=== PATIENT | male | born 1975 | race Caucasian/White ===

== ENCOUNTER 2017-11-08 15:18 | Emergency (ER) | payer MEDICAID, SELFPAY ==
[2017-11-08] VITALS (7 sets, daily range): BP systolic 101–153; BP diastolic 63–90; PULSE 75–106; RESP 11–20; TEMP 36.4; O2SAT 93–98; BMI 36.8
--- NOTE | 2017-11-08 15:28 | EKG12_ITS ---
Test Reason : CP Blood Pressure : / mmHG Vent. Rate : 096 BPM Atrial Rate : 096 BPM P-R Int : 128 ms QRS Dur : 092 ms QT Int : 328 ms P-R-T Axes : 024 -05 016 degrees QTc Int : 414 ms Normal sinus rhythm Normal ECG Confirmed by KYA HILL MD ([id number]), film editor supervisor ZULMA BIRMINGHAM ([id number]) on 11/11/2017 8:42:59 AM Referred By: Confirmed By:KYA HILL MD
[2017-11-08] MEDS: Aspirin 81 MG TAB.CHEW 324 MG PO (15:46)
[2017-11-08 15:58] LABS: Absolute Lymphocyte Count 2.86 X10^3/ul (0.83-4.51); Absolute Neutrophil Count 7.1 X10^3/uL (2.0-7.7); Basophil# 0.06 X10^3/uL; Basophil% 0.5 % (0-1); Eosinophil# 0.21 X10^3/uL; Eosinophils% 1.9 % (0-5); Hematocrit 48.5 % (40-54); Hemoglobin 16.9 g/dl (13.0-16.5); Lymphocyte # 2.86 X10^3/ul (4.0); Lymphocyte % 25.6 % (19-41); Mean Corp Hgb Conc 34.8 g/gl (32-36); Mean Corpuscular Hgb 31.7 pg (27.0-32.0); Mean Platelet Vol. 10.3 fl (6.2-12.0); Monocyte# 0.87 X10^3/uL; Monocyte% 7.8 % (0-10); Neutrophil # 7.13 X10^3/uL (2.7-7.7); Neutrophil % 63.9 % (47-70); POSITIVE COUNT NO; POSITIVE DIFFERENTIAL NO; POSITIVE MORPHOLOGY NO; Platelet Count 198 K/mm3 (150-450); RBC Distribution Width CV 12.8 % (11.6-14.6); RBC Distribution Width SD 42.7 fl (35.1-43.9); Red Blood Count 5.33 M/mm3 (4.6-6.2); White Blood Count 11.2 K/mm3 (4.4-11.0)
--- NOTE | 2017-11-08 16:08 | RAD_ITS ---
STUDY: X-RAY CHEST REASON FOR EXAM: Male, 42 years old. Chest pain. TECHNIQUE: PA and lateral views of the chest. COMPARISON: 11/30/2013 FINDINGS: The lungs are clear and expanded. There is no demonstrated pleural abnormality. Normal size heart. Normal mediastinum and rick. Normal visualized pulmonary arteries. Normal visualized aortic arch and descending thoracic aorta. Normal visualized thoracic spine. Normal visualized ribs, clavicles, and shoulders. There is no demonstrated abnormality of the visualized soft tissue structures of the upper abdomen. RAD/Chest PA and Lateral IMPRESSION: Normal x-ray examination of the chest. Electronically Signed: David Escalante DO at 16:30 EST Tel , Service support ,
[2017-11-08 16:18] LABS: Anion Gap 8 (5-15); BUN 9 mg/dL (7-18); BUN/Creat Ratio 7.8 RATIO (10-20); Calcium,Total 8.5 mg/dL (8.5-10.1); Chloride 106 mmol/L (98-107); Creatinine, Serum 1.15 mg/dL (0.70-1.30); EST Glomerular Filtration Rate 74 mL/min (>60); Est Glom Filt Rate - Afr Amer 89 mL/min (>60); Estimated Creatinine Clearance 88.21 ml/min; Glucose 135 mg/dL (74-106); Potassium 3.8 mmol/L (3.5-5.1); Sodium Level 140 mmol/L (136-145)
--- NOTE | 2017-11-08 17:13 | EKG12_ITS ---
Test Reason : REPEAT Blood Pressure : / mmHG Vent. Rate : 082 BPM Atrial Rate : 082 BPM P-R Int : 124 ms QRS Dur : 086 ms QT Int : 358 ms P-R-T Axes : 018 004 027 degrees QTc Int : 418 ms Normal sinus rhythm Normal ECG Confirmed by KYA HILL MD ([id number]), offline editor ZULMA BIRMINGHAM ([id number]) on 11/11/2017 8:43:18 AM Referred By: LUIGI Confirmed By:KYA HILL MD
--- NOTE | 2017-11-08 19:30 | ED.DCSUM_ITS ---
- ER Visit Summary Date of Service: 11/08/17 Chief Complaint: [] Chest pain History of Present Illness: The patient is a 42 M []c/o midsternal CP one hour after arrival. Reports onset of symptoms while feeding his horses. Denies shortness of breath. Does report slight radiation to the upper part of the chest. Denies any previous cardiac history or previous stress test. Does report he is a smoker. He reports no past medical history. His report previous surgical history of tonsils and adenoids, wrist repair, hernia repair, knee repair. Reports the chest pain is a 3 out of 10 upon arrival. He reports it was as high as a 5 out of 10 prior to arrival. Physical Examination: [] Afebrile, vital signs stable. Middle-age male no acute distress. Cardiovascular exam is regular rate and rhythm. Lungs are clear to auscultation. Abdomen is soft and nontender. There is no lower extremity edema. Test Results: [] Chest x-ray 2 views negative. Initial EKG shows normal sinus rhythm rate of 96 with no ectopy or ischemic changes. Repeat EKG shows normal sinus rhythm rate of 82 with no ischemic changes. This was obtained 2 hours after initial EKG. CBC, BMP were within normal limits. First troponin was less than 0.02. Second troponin was 0.04. Emergency Department Course and Treatment: [] Patient was given aspirin and nitroglycerin upon arrival. Patient received all 3 nitroglycerin tablets and reports significant improvement of symptoms. His SAMREEN risk score is 0 out of 7. His repeat EKG and troponin on the delta evaluation were negative. At this time I feel the patient is a low risk candidate and can safely be discharged home with close follow-up with his PCP for an outpatient stress test. Patient was amenable to plan. He was counseled regarding his diagnostic and laboratory testing. All questions answered in layman's terms. Treatment Plan: [] Follow-up with PCP for outpatient stress testing. Return immediately to the emergency department should symptoms recur. Disposition: [] Discharge, stable. Impression: [] Chest pain, unknown etiology This note was generated with [employer] software. It may contain incorrect words, spelling, and punctuation that were not noted in review of the chart prior to signing ED Disposition - Plan for ED Patient: Chief Complaint: Chest Pain Referrals: Milana Adame [Primary Care Provider] -
--- NOTE | 2017-11-08 19:30 | ED.DEP ---
ED Disposition - Plan for ED Patient: Disposition: Home or Assisted Living Chief Complaint: Chest Pain Instructions: ED Chest Pain [facility] Referrals: Milana Adame [Primary Care Provider] - Additional Instructions: Follow up with your primary care physician as soon as possible. Discuss the arrangement of an outpatient stress test.
== END 2017-11-08 19:55 | disposition home or self-care (01) ==
PROVIDERS: Emergency Provider Emergency Medicine; Family Provider Family Medicine; PCP Family Medicine
DX: R07.89 Other chest pain (principal); R61 Generalized hyperhidrosis; E66.9 Obesity, unspecified; Z72.0 Tobacco use
CPT/HCPCS: 71046; 80048; 84484; 85025; 93005; 99284; A4216

== ENCOUNTER → 2017-12-16 15:11 | Outpatient (CLI) | payer MEDICAID, SELFPAY ==
[2017-12-16 16:34] LABS: Anion Gap 7 (5-15); BUN 11 mg/dL (7-18); BUN/Creat Ratio 11.6 RATIO (10-20); Calcium,Total 8.6 mg/dL (8.5-10.1); Chloride 104 mmol/L (98-107); Creatinine, Serum 0.94 mg/dL (0.70-1.30); EST Glomerular Filtration Rate 93 mL/min (>60); Est Glom Filt Rate - Afr Amer 112 mL/min (>60); Glucose 95 mg/dL (74-106); Sodium Level 138 mmol/L (136-145)
[2017-12-16 16:35] LABS: Absolute Neutrophil Count 6.4 X10^3/uL (2.0-7.7); Basophil# 0.05 X10^3/uL; Basophil% 0.5 % (0-1); Eosinophil# 0.23 X10^3/uL; Eosinophils% 2.1 % (0-5); Hematocrit 50.8 % (40-54); Hemoglobin 17.4 g/dl (13.0-16.5); Lymphocyte % 30.7 % (19-41); Mean Corp Hgb Conc 34.3 g/gl (32-36); Mean Corpuscular Hgb 31.4 pg (27.0-32.0); Mean Corpuscular Volume 91.7 fL (80-94); Mean Platelet Vol. 11.2 fl (6.2-12.0); Monocyte# 1.01 X10^3/uL; Monocyte% 9.1 % (0-10); Neutrophil # 6.36 X10^3/uL (2.7-7.7); Neutrophil % 57.2 % (47-70); Platelet Count 212 K/mm3 (150-450); RBC Distribution Width CV 13.2 % (11.6-14.6); RBC Distribution Width SD 43.9 fl (35.1-43.9); Red Blood Count 5.54 M/mm3 (4.6-6.2); White Blood Count 11.1 K/mm3 (4.4-11.0)
[2017-12-16 16:42] LABS: POSITIVE COUNT NO; POSITIVE DIFFERENTIAL NO; POSITIVE MORPHOLOGY NO
[2017-12-16 17:09] LABS: International Normalized Ratio 0.9; Prothrombin Time (Protime)PT. 11.6 SECONDS (11.7-14.9)
[2017-12-16 17:10] LABS: Partial Thromboplast Time 39.4 Seconds (24.1-36.2)
== END ==
PROVIDERS: Family Provider Internal Medicine; PCP Internal Medicine; Visit Provider Internal Medicine Cardiovascular Disease
DX: E78.2 Mixed hyperlipidemia (principal); R07.9 Chest pain, unspecified; Z72.0 Tobacco use; E66.9 Obesity, unspecified; R94.39 Abnormal result of other cardiovascular function study
CPT/HCPCS: 36415; 80048; 85025; 85610; 85730

== ENCOUNTER → 2017-12-17 13:39 | Outpatient (CLI) | payer MEDICAID, SELFPAY ==
--- NOTE | 2017-12-17 13:39 | ECHOD_ITS ---
Reason For Study: CHEST PAIN Procedure This was a 2D Doppler, Color Flow transthoracic echocardiogram. Contrast injection was performed. Exam performed in department. Left Ventricle Normal size and thickness. The estimated ejection fraction is 65 %. No regional wall motion abnormalities noted. Right Ventricle Normal size and thickness. Normal systolic function. Atria Normal left atrium. Normal right atrium. Normal atrial septum. Mitral Valve The mitral valve is structurally normal. No prolapse or stenosis seen. Tricuspid Valve Normal tricuspid valve. Trivial tricuspid valve insufficiency. Right ventricular systolic pressure estimated to be 23 mmHg. Aortic Valve Trisinus/trileaflet aortic valve. Normal aortic valve. Pulmonic Valve Normal pulmonic valve. Great Vessels Normal aortic root. Normal arch. Normal inferior vena cava. Inferior vena cava collapse with sniff. Pericardium/Pleural No pericardial effusion. Medication 22 gauge I.V. with prn adaptor inserted into right arm. Diluted definity 4ml given slow IV push to enhance endocardial definition. MMode/2D Measurements & Calculations LVIDd: 5.1 cm IVSd: 1.0 cm Ao root diam: 3.8 cm LVIDs: 3.6 cm LVPWd: 1.2 cm LA dimension: 3.9 cm RVDd: 3.4 cm FS: 29.1 % LAV(MOD-bp): 38.1 ml EDV(MOD-sp4): 101.1 ml EDV(MOD-sp2): 73.6 ml LAV(MOD-bp) Indexed: 15.9 ml/m2 ESV(MOD-sp4): 34.5 ml EF(MOD-sp2): 62.8 % LAV(MOD-sp2): 40.6 ml EF(MOD-sp4): 65.8 % LAV(MOD-sp4): 36.2 ml SV(MOD-sp4): 66.5 ml SV(MOD-sp2): 46.2 ml LA A4 area: 15.0 cm2 RA A4 area: 14.1 cm2 Doppler Measurements & Calculations MV E max mirna: 51.0 cm/sec Ao V2 max: 144.6 cm/sec LV V1 max: 101.6 cm/sec MV A max mirna: 64.8 cm/sec Ao max P.4 mmHg LV V1 max P.1 mmHg MV E/A: 0.79 PA V2 max: 118.3 cm/sec TR max mirna: 209.8 cm/sec TR max P.6 mmHg Interpretation Summary The estimated ejection fraction is 65 %. Right ventricular systolic pressure estimated to be 23 mmHg. There is no comparison study available. Ordering Physician: Tyler Hall Referring Physician: GUDELIA SCHMIDT MD Performed By: Cathy Sr, VANCE, RVT
== END ==
PROVIDERS: Family Provider Internal Medicine; PCP Internal Medicine; Visit Provider Internal Medicine Cardiovascular Disease
DX: E78.2 Mixed hyperlipidemia (principal); R07.9 Chest pain, unspecified; E66.9 Obesity, unspecified; Z72.0 Tobacco use; R94.39 Abnormal result of other cardiovascular function study; R06.09 Other forms of dyspnea
CPT/HCPCS: 93306; Q9957; A4216; C8929

== ENCOUNTER → 2017-12-18 06:57 | Day surgery (SDC) | payer MEDICAID, SELFPAY ==
[2017-12-17 15:31] VITALS: BMI 37.9
[2017-12-18 07:45] LABS: AST(SGOT) 26 U/L (15-37); Alanine Aminotransfer ALT/SGPT 53 U/L (16-61); Albumin, Serum 3.7 g/dL (3.2-5.0); Alkaline Phosphatase 85 U/L (45-117); Bilirubin, Direct 0.08 mg/dL (0.00-0.30); Cholesterol 223 mg/dL (200); Globulin 3.3 g/dL (2.2-4.2); High Density Lipoprotein 23 mg/dL; Triglycerides 438 mg/dL
--- NOTE | 2017-12-18 10:33 | CL.D_ITS ---
Patient Name: PAT VU Study Date: 12/18/2017 Performing: Tyler Hall MD Ht: 70.86 inches 180 cm : 1975 Wt: 271.17 lbs 123 kg Age: 42 Gender: male BSA: 2.4 PROCEDURE(S) PERFORMED [id number]-[id number]/COR/LV CLINICAL PROFILE AND INDICATIONS INDICATIONS: Unstable Angina Stress/Imaging Stress Test w/SPECT MPI: Yes Result: Positive High RiskStress Test with SPECT MPI: Positive High Risk Angina Classification Anginal Classification w/in 2 Weeks: CCS IV CAD Presentations: Unstable angina. Comorbidities/Risk Factors: Current/Recent Smoker (< 1year) Hypertension Dyslipidemia Family History of Premature CAD CONCLUSIONS RECOMMENDATIONS Surgery consult for coronary revascularization Risk factor modification DESCRIPTION OF PROCEDURE The patient arrived to the procedure lab. The risks and benefits of the procedure as well as a full d escription of our services here and current unavailability of surgical backup were fully explained to the patient and/or their significant other prior to the catheterization. The Timeout was completed, verifying the correct patient and procedure. The patient's procedural site was prepped and draped in the usual fashion. Local anesthetic was given subcutaneously to right groin region with Lidocaine 2%. Using a modified Seldinger technique, arterial access was obtained via the right femoral artery, a 4 Fr sheath was inserted Left Coronary Artery selective angiography was performed in multiple views us ing a 4 Fr. JL5 catheter. Right Coronary Artery selective angiography was then performed in multiple views using a 4 Fr. 3DRC catheter. Left Ventriculography was performed in LORA projection using a 4 Fr . Pigtail catheter. LV to AO pullback pressures were then recorded.The arterial sheath was pulled and manual compression applied until hemostasis is achieved. CORONARY ANGIOGRAPHY DOMINANCE: Right Dominant LEFT HEART ASSESSMENT Left Ventricular Ejection Fraction: by LV Gram 65 % Normal LV wall motion Normal Left Ventricular systolic function Normal Left Ventricular End Diastolic Pressure LEFT MAIN: Non-obstructive LEFT ANTERIOR DECENDING ARTERY: PROX LAD: 85 % Stenosis CIRCUMFLEX ARTERY: Mild luminal irregularities less than 30% RIGHT CORONARY ARTERY: is occluded COLLATERAL FLOW: Collateral flow from Left to Right Collateral flow from Right to Right COMPLICATIONS No Complications PROCEDURE MEDICATIONS Oxygen: 2 L/min via nasal cannula SUMMARY OF HEMODYNAMIC DATA Time AIR REST ECG 07:45:47 ECG 07:45:54 AO 127/79 (95) SA 10:09:33 LV 138/-16, 13 10:15:25 LV 136/-13, 15 10:15:32 LVp 146/-17, 9 10:18:27 AOp 125/68 (91) 10:18:32 Signed By Tyler Hall MD On 12/18/2017 10:32:59 Tylre Hall MD
--- NOTE | 2017-12-18 10:47 | CASEMGMT ---
Per Dr. Hall, pt is outpt cath and needs transferred at this time. According to [place] [employer] website, the following are in-network tertiary facilities: [facility], [facility], [place], [facility], [facility], [facility], and . Dr. Hall aware at this time, voices understanding. Christoph MIRELSE CM
== END ==
PROVIDERS: Family Provider Internal Medicine; PCP Internal Medicine; Visit Provider Internal Medicine Cardiovascular Disease
DX: I25.110 Atherosclerotic heart disease of native coronary artery with unstable angina pectoris (principal); R94.39 Abnormal result of other cardiovascular function study; E66.01 Morbid (severe) obesity due to excess calories; Z68.37 Body mass index [BMI] 37.0-37.9, adult; I10 Essential (primary) hypertension; E78.2 Mixed hyperlipidemia; F17.200 Nicotine dependence, unspecified, uncomplicated; Z87.2 Personal history of diseases of the skin and subcutaneous tissue; Z79.82 Long term (current) use of aspirin; Z79.899 Other long term (current) drug therapy
CPT/HCPCS: 36415; 80061; 80076; 93458; J7040; C1769; C1894; Q9967

== ENCOUNTER → 2018-01-30 12:51 | Outpatient (CLI) | payer MEDICAID, SELFPAY ==
--- NOTE | 2018-01-30 12:57 | PCM.CR.ITP ---
General Information - General Information Admitting Diagnosis: Z95.1 CABG - Education/Goals Barriers to Learning: None Individual Counseling: Initial Assessment: Abnormal Cholesterol Levels, High Blood Pressure, Overweight/Obesity Cardiac Rehabilitation Goals: 1. Maintain the individual as the primary focus of care. 2. To improve the patient's quality of life. 3. Identification of cardiac risk factors and provide cardiac risk factor management. 4. Enhance the psychosocial status of the patient. 5. Reconditioning enough to allow the patient to resume customary activities. 6. Control symptoms of cardiac disease Scale for measuring improvement of personal goals: Enter appropriate number in Comments. 2 = Unchanged. 3 = Slightly Better. 4 = Moderate Improvement. 5 = Met my Goal Personal Goals: Initial Assessment: Improve energy level, Get back to work, or to resume activities faster, Improve knowledge of cardiac disease, Improve muscle strength and endurance, Improve diet and eating habits (eat healthier), Control risk factors (learn risk factor modification) Exercise - Initial Assessment - Visit Date of Eval: 01/30/18 - initial eval - Stages of Change Stages of Change:: Contemplate - Exercise Prescription Mode:: Treadmill, Biodyne, Airdyne, NuStep Angina with exercise?: No Target Heart Rate:: 123-132 - Hypertension Do any of the following apply?: Yes Resting Blood Pressure:: 120/70 - Intervention Home Exercise/Activity Goal:: Sitting Time <3 hrs/day - Education Goals:: Warm-up, RPE JULIANNE Scale, S/S, Safe Exercise, Self-Monitoring - Exercise Program Goals Exercise Program Goals: Aerobic Activity >30 min Nutrition - Initial Assessment - Program Goals Nutrition Program Goals: LDL <70. Total Cholesterol <200. HDL >45. Triglycerides <150. HgbA1C <7%. BMI <25 - Visit Date of Assessment:: 01/30/18 - Stages of Change Stages of Change:: Contemplate - Diabetes Diabetes:: No - Weight Management Height: 1.8 m Weight:: 123.377 kg Total Score:: 6 Tobacco - Initial Assessment - Program Goals Tobacco Program Goals: Complete smoking cessation. Attend education classes. Improve Knowledge Test score - Stage of Change Stages of Change:: Contemplate - Learning Barriers Total Score:: 17 - Family Support Do you have family support?: Yes - Tobacco Use Tobacco Use: Non-smoker Years Smokin - reformed 11/06/17 Do you use smokeless tobacco?: No - Intervention Smoking Cessation Referral:: No Individual Education/Counseling:: No Education Schedule Given:: Yes - Education Gave educational material for:: Tobacco triggers, Coronary artery disease, Risk factors, Sexuality, Medical compliance, Cardiac A&P, Angina signs & symptoms Psychosocial - Initial Assess - Target Goals Target Goals: Assess presence or absence of depression. Using a valid screening tool, maximizes coping skills. Positive support system - Stages of Change Stages of Change:: Contemplate - Psychosocial Test Tool Used:: HANDS Depression Questionnaire Total Mood Screening Score:: 9 Self-Efficacy Score:: 6 - Intervention PS - Interventions: Yes Attend Stress Management Classes, Yes Uses Stress Management Skills, No Referral to Mental Health, No Referral to [facility] Case Management, No Referral to Physician - Education Gave educational materials for:: Coping techniques, Signs & symptoms of depression, Stress management, Relaxation techniques - Assistive Devices Assistive Devices:: None Fall Risk Assessed:: Yes Patient Health Questionnaire Initial Assessment 1. Little interest or pleasure in doing things: More than half the days 2. Feeling down, depressed, or hopeless: Not at all 3. Trouble falling or staying asleep, or sleeping too much: Several days 4. Feeling tired or having little energy: More than half the days 5. Poor appetite or overeating: More than half the days 6. Feeling bad about yourself -- or that you are a failure or have let yourself or your family down: Not at all 7. Trouble concentrating on things, such as reading the newspaper or watching television: More than half the days 8. Moving or speaking so slowly that other people could have noticed. Or the opposite - being so fidgety or restless that you have been moving around a lot more than usual: Not at all 9. Thoughts that you would be better off , or of hurting yourself in some way: Not at all How difficult have these problems made it for you to do your work, take care of things at home, or get along with other people?: Not difficult at all Total Score: 9 NATE-Q SV Test - Statements CAD is a disease of the arteries in the heart: False Examples of risk factors for heart disease: True Angina is chest pain or discomfort: False The benefits of resistance training include: True Eating more meat and dairy products: False Anti-platelet medications such as aspirin are important: False The only effective way to manage stress: False An exercise warm-up slowly increases heart rate: True Prepared, processed foods usually have high sodium: True Depression is common after a heart attack: True The statin medications lower cholesterol: True To control blood pressure, lower the amount of sodium: True If someone gets chest discomfort during walking: True Transfats are partially hydrogenated vegetable oils: True Sleep apnea that is not treated increases the risk: False To control cholesterol, one should become a vegetarian: False Someone knows if he/she is exercising at the right level: True Diabetes cannot be prevented with exercise & health eating: False Stress is a large risk for heart attack: True A diet that can help lower blood pressure is rich in: True - Total Score Total Correct Responses: 17 Self-Efficacy Initial Assessment We would like to know how confident you are in doing certain activities. Please select your confidence level for:: Select your confidence level for the following using the scale 1-10 where 1 is not at all confident and 10 is totally confident. Your score is the average of all 6 responses. Fatigue: How confident are you that you can keep the fatigue caused by your disease from interfering with the things you want to do? Select Number: 7 Physical Discomfort or Pain: How confident are you that you can keep the physical discomfort or pain of your disease from interfering with the things you want to do? Select Number: 6 Emotional Distress: How confident are you that you can keep the emotional distress caused by your disease from interfering with the things you want to do? Select Number: 5 Other Symptoms or Health Problems: How confident are you that you can keep other symptoms or health problems from interfering with the things you want to do? Select Number: 5 Different Tasks and Activities: How confident are you that you can do the different tasks and activities needed to manage your health condition so as to reduce your need to see a doctor? Select Number: 5 Medication: How confident are you that you can do things other than just taking medication to reduce how much your illness affects your everyday life? Select Number: 9 Total Score:: 6 Nutrition Survey - Nutrition Survey Instructions Scoring Instructions: Scoring is as follows: Yes = 1 points. No = 0 point. Patient score that is >/=12 is considered to be at potential nutritional risk and could benefit from a referral to a registered dietitian. - Nutrition Survey Initial Have you lost >10 lbs over the past 2 months without trying?: Yes Are you following a special diet at home for diabetes, low fat, or low salt?: No Are you interested in meeting with a dietitian for help understanding your diet?: Yes Do you eat less than 3 meals a day?: Yes Do you eat fatty meats (nino, sausage, ribs, etc), fried foods, desserts, large amounts of salad dressings, margarine, butter, or cheese most days?: Yes Do you have food allergies? [Enter types in comment field]: No Do you eat in restaurants more than 3 times a week?: No Do you season food with salt, seasoning salt, or garlic salt?: Yes Do you used canned, boxed, frozen meals, or soups, seasoning packets?: Yes Total Score:: 6
--- NOTE | 2018-01-30 12:58 | PCM.CR.HP2 ---
CR - History & Physical - General Arrival date:: 01/30/18 Arrival time:: 12:58 Date of Referral:: 01/13/18 Date of CR Evaluation:: 01/30/18 Referring Physician: Dr. Tyler Hall and Dr. Pancho Temple Primary Diagnosis: Z95.1 CABG - History of Present Cardiac Event Onset Date: Enter Onset Date of cardiac illnesses in Comment field below Current stable Angina Pectoris:: Yes Coronary Artery Bypass Graft:: Yes - Medications Home Medications: Ambulatory Orders Medication Instructions Recorded aspirin 81 mg tablet,delayed 81 mg PO QDAY tab 12/16/17 release acetaminophen 325 mg tablet See Label Instructions PO Q6H PRN 01/22/18 metoprolol tartrate 50 mg tablet 50 mg PO TID tab 01/22/18 atorvastatin 80 mg tablet 80 mg PO QDAY #90 tab 01/23/18 gabapentin 100 mg capsule 100 mg PO TID cap 01/23/18 - Allergies Allergies/Adverse Reactions: Allergies Penicillins Allergy (Verified 01/23/18 11:25) Anaphylaxis - Sleep Disorder Evaluation Hx of Sleep Apnea: No Do you snore loudly (louder than talking or can be heard through closed doors)?: Yes Do you often feel tired/ fatigued/ sleepy during daytime?: No Has anyone observed you stop breathing during sleep?: Yes History of Hypertension (for STOP score): Yes STOP Results: Positive Advanced Directives - Advanced Directives Power of Sports Bookmaker: No Living Will: No Advance Directives Information Provided: No Advance Directives on File: No DNR Order?:: No - MOLST See MOLST form: No Past Medical History - Past Medical Illness Medical History: Past Medical History (Last Reviewed 01/23/18 @ 11:22 by Lakeisha Arzola) Atherosclerotic heart disease of [place] coronary artery without angina pectoris (Chronic) I25.10 BRAGA to LAD, SVG to PDA of RCA Per Dr. Pancho Temple [facility] 12/24/2017 Mixed hyperlipidemia (Chronic) E78.2 Obesity (BMI 30-39.9) (Chronic) E66.9 Nicotine abuse (Chronic) Z72.0 Cutaneous abscess of chest wall L02.213 - Past Surgical History Surgical History: Past Surgical History (Last Reviewed 01/23/18 @ 11:23 by Lakeisha Arzola) S/P CABG x 2 (Chronic) Z95.1 BRAGA to LAD, SVG to PDA of RCA Per Dr. Pancho Temple [facility] 12/24/2017 - Family History Summary Family History: Family History (Last Reviewed 01/23/18 @ 11:23 by Lakeisha Arzola) Grandfather CAD (coronary artery disease) Grandmother CAD (coronary artery disease) Aunt CAD (coronary artery disease) Other CVA (cerebral vascular accident) Social History - Smoking History Smoking Status: Former smoker Years Smokin Packs Smoked per Day: 1.5 Hx Smoking Cessation Date: 11/06/2017 Hx Tobacco Use: Yes Hx Smoking Exposure: Yes - Alcohol Use Alcohol Usage: Yes - socially - Substance Abuse Hx Substance Use: No - Occupation Occupation (List type of work in comments):: Unemployed - Hobbies, Recreation, Social Activities Hobbies: Farm, Other - hunting, fishing, horses Recreational Activities: I am able to engage in most, but not all activities Social Environment - Status Marital Status: - Current Living Arrangements Living Environment:: Family - Children How many children do you have?: 4 Do any of your children live nearby?: Yes - Safety Do you feel safe in your surroundings?: Yes - Assistance Do you need any assistance at home?: none Review of Systems - Review of Systems Hints: Right click = Denies (Slash). Left click = Reports ([place]) Review of Present Symptoms: Reports: Shortness of Breath at Rest, Shortness of Breath with Exertion, Angina. Denies: PVD, Operative Discomfort, Wound Healing, Dizziness/Lightheadedness, Fatigue, Heart Arrhythmia/Irregularities, Appetite - Normal, Appetite - Special Diet, Sleep - Normal, Sexual Changes - Pain Is Patient Pain Free?: Yes Pain Location: chest, lower extremity Pain Level: 10 - if on his stomach Risk Factor Assessment - Chief Complaint Chief Complaint: CABG, CP - Vital Signs Pulse Ox: 97 - Pulse Pulse Rate: 92 Pulse Rhythm: Regular - Hypertension Blood Pressure Sitting - Right Arm: 120/70 - Stress Stress: Long-standing, Home/Family - Diabetes Nutrition Referral for Diabetes: No - Obesity Height: 1.8 m Weight:: 123.377 kg Weight in Pounds: 272.0 lbs Body Mass Index (BMI): 37.9 Nutritional Referral for Obesity: No - Physical Inactivity Physical Inactivity: Reg Exercise 30 min/day - Risk Stratification Risk Guidelines: Moderate Risk: Risk Factor for Diabetes, Risk Factor for Sedentary Lifestyle, Risk Factor for Depression, Highest Risk: Risk Factor for Smoking, Risk Factor for Dyslipidemia, Risk Factor for Obesity, Risk Factor for Hypertension - For Smoking Smoking Risk Guidelines: Smoking Low Risk: None or quit greater than 6 months ago. Smoking Moderate Risk: Smoker or quit 6 months or less ago. Smoking High Risk: Smoker - For Dyslipidemia Dyslipidemia Risk Guidelines: Low Risk: Moderate Risk: High Risk: 15-25% fat 25.1-29% fat >/= 30% fat. <7% sat fat 7-9% sat fat >9% sat fat. <150 mg chol 150-299 mg chol >/= 300 mg chol. LDL <100 LDL 100-129 LDL >/= 130. Chol/HDL ratio <5.0 Chol/HDL ratio 5.0-6.0 Chol/HDL ratio >6.0. Triglycerides <100 Triglycerides 100-149 Triglycerides >/= 150 - For Diabetes Mellitus Diabetes Risk Guidelines: Diabetes Low Risk: HgA1c <6.5% and/or FBG <120. Diabetes Moderate Risk: HgA1c 6.6-7.9% and/or FBG 120-180. Diabetes High Risk: HgA1c >/= 8% and/or FBG >180 - For Obesity/Overweight Obesity/Overweight Risk Guidelines: Obesity Low Risk: BMI <25.0. Obesity Moderate Risk: BMI 25-29.9. Obesity High Risk: BMI >/= 30.0 - For Hypertension Hypertension Risk Guidelines: Hypertension Low Risk: Systolic <120 and Diastolic <80. Hypertension Moderate Risk: Systolic 120-139 and Diastolic 80-89. Hypertension High Risk: Systolic >/= 140 and Diastolic >/= 90 - For Sedentary Lifestyle Sedentary Lifestyle Risk Guidelines: Sedentary Lifestyle Low Risk: >/= 1,500 kcal/week. Sedentary Lifestyle Moderate Risk: 700-1,499 kcal/week. Sedentary Lifestyle High Risk: < 700 kcal/week - For Depression Depression Risk Guidelines: Depression Low Risk: Not clinically depressed. Depression Moderate Risk: Mildly depressed. Depression High Risk: Clinically depressed - Family History Family History: Family History (Last Reviewed 01/23/18 @ 11:23 by Lakeisha Arzola) Grandfather CAD (coronary artery disease) Grandmother CAD (coronary artery disease) Aunt CAD (coronary artery disease) Other CVA (cerebral vascular accident) Motivation - Motivation to Participate On a scale of 1 to 10, how prepared are you to commit to attending program?: 10 What do you see as barriers to successfully being able to complete the program?: back issues What do you see as the benefits of succesfully completing the program? In other words, what do you hope to get out of participating in the program?: better health normal life Are there issues you are dealing with that will interfere with completing the program?: back issues Do you have a spouse or signficant other, family or friends who will help support you to complete the program?: yes
--- NOTE | 2018-01-30 13:08 | CR.HP_ITS ---
CR - History & Physical - General Arrival date:: 01/30/18 Arrival time:: 12:58 Date of Referral:: 01/13/18 Date of CR Evaluation:: 01/30/18 Referring Physician: Dr. Tyler Hall and Dr. Pancho Temple Primary Diagnosis: Z95.1 CABG - History of Present Cardiac Event Onset Date: Enter Onset Date of cardiac illnesses in Comment field below Current stable Angina Pectoris:: Yes Coronary Artery Bypass Graft:: Yes - Medications Home Medications: Ambulatory Orders Medication Instructions Recorded aspirin 81 mg tablet,delayed 81 mg PO QDAY tab 12/16/17 release acetaminophen 325 mg tablet See Label Instructions PO Q6H PRN 01/22/18 metoprolol tartrate 50 mg tablet 50 mg PO TID tab 01/22/18 atorvastatin 80 mg tablet 80 mg PO QDAY #90 tab 01/23/18 gabapentin 100 mg capsule 100 mg PO TID cap 01/23/18 - Allergies Allergies/Adverse Reactions: Allergies Penicillins Allergy (Verified 01/23/18 11:25) Anaphylaxis - Sleep Disorder Evaluation Hx of Sleep Apnea: No Do you snore loudly (louder than talking or can be heard through closed doors)? : Yes Do you often feel tired/ fatigued/ sleepy during daytime?: No Has anyone observed you stop breathing during sleep?: Yes History of Hypertension (for STOP score): Yes STOP Results: Positive Advanced Directives - Advanced Directives Power of Production Maintenance Technician: No Living Will: No Advance Directives Information Provided: No Advance Directives on File: No DNR Order?:: No - MOLST See MOLST form: No Past Medical History - Past Medical Illness Medical History: Past Medical History (Last Reviewed 01/23/18 @ 11:22 by Lakeisha Arzola) Atherosclerotic heart disease of [place] coronary artery without angina pectoris (Chronic) I25.10 BRAGA to LAD, SVG to PDA of RCA Per Dr. 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 Pancho Temple [facility] 12/24/2017 - Family History Summary Family History: Family History (Last Reviewed 01/23/18 @ 11:23 by Lakeisha Arzola) Grandfather CAD (coronary artery disease) Grandmother CAD (coronary artery disease) Aunt CAD (coronary artery disease) Other CVA (cerebral vascular accident) Social History - Smoking History Smoking Status: Former smoker Years Smokin Packs Smoked per Day: 1.5 Hx Smoking Cessation Date: 11/06/2017 Hx Tobacco Use: Yes Hx Smoking Exposure: Yes - Alcohol Use Alcohol Usage: Yes - socially - Substance Abuse Hx Substance Use: No - Occupation Occupation (List type of work in comments):: Unemployed - Hobbies, Recreation, Social Activities Hobbies: Farm, Other - hunting, fishing, horses Recreational Activities: I am able to engage in most, but not all activities Social Environment - Status Marital Status: - Current Living Arrangements Living Environment:: Family - Children How many children do you have?: 4 Do any of your children live nearby?: Yes - Safety Do you feel safe in your surroundings?: Yes - Assistance Do you need any assistance at home?: none Review of Systems - Review of Systems Hints: Right click = Denies ([place]ash). Left click = Reports ([place]) Review of Present Symptoms: Reports: Shortness of Breath at Rest, Shortness of Breath with Exertion, Angina. Denies: PVD, Operative Discomfort, Wound Healing , Dizziness/Lightheadedness, Fatigue, Heart Arrhythmia/Irregularities, Appetite - Normal, Appetite - Special Diet, Sleep - Normal, Sexual Changes - Pain Is Patient Pain Free?: Yes Pain Location: chest, lower extremity Pain Level: 10 - if on his stomach Risk Factor Assessment - Chief Complaint Chief Complaint: CABG, CP - Vital Signs Pulse Ox: 97 - Pulse Pulse Rate: 92 Pulse Rhythm: Regular - Hypertension Blood Pressure Sitting - Right Arm: 120/70 - Stress Stress: Long-standing, Home/Family - Diabetes Nutrition Referral for Diabetes: No - Obesity Height: 1.8 m Weight:: 123.377 kg Weight in Pounds: 272.0 lbs Body Mass Index (BMI): 37.9 Nutritional Referral for Obesity: No - Physical Inactivity Physical Inactivity: Reg Exercise 30 min/day - Risk Stratification Risk Guidelines: Moderate Risk: Risk Factor for Diabetes, Risk Factor for Sedentary Lifestyle, Risk Factor for Depression, Highest Risk: Risk Factor for Smoking, Risk Factor for Dyslipidemia, Risk Factor for Obesity, Risk Factor for Hypertension - For Smoking Smoking Risk Guidelines: Smoking Low Risk: None or quit greater than 6 months ago. Smoking Moderate Risk: Smoker or quit 6 months or less ago. Smoking High Risk: Smoker - For Dyslipidemia Dyslipidemia Risk Guidelines: Low Risk: Moderate Risk: High Risk: 15-25% fat 25.1-29% fat >/= 30% fat. <7% sat fat 7-9% sat fat >9% sat fat. <150 mg chol 150-299 mg chol >/= 300 mg chol. LDL <100 LDL 100-129 LDL >/= 130. Chol/HDL ratio <5.0 Chol/HDL ratio 5.0-6.0 Chol/HDL ratio >6.0. Triglycerides <100 Triglycerides 100-149 Triglycerides >/= 150 - For Diabetes Mellitus Diabetes Risk Guidelines: Diabetes Low Risk: HgA1c <6.5% and/or FBG <120. Diabetes Moderate Risk: HgA1c 6.6-7.9% and/or FBG 120-180. Diabetes High Risk: HgA1c >/= 8% and/or FBG >180 - For Obesity/Overweight Obesity/Overweight Risk Guidelines: Obesity Low Risk: BMI <25.0. Obesity Moderate Risk: BMI 25-29.9. Obesity High Risk: BMI >/= 30.0 - For Hypertension Hypertension Risk Guidelines: Hypertension Low Risk: Systolic <120 and Diastolic <80. Hypertension Moderate Risk: Systolic 120-139 and Diastolic 80-89. Hypertension High Risk: Systolic >/= 140 and Diastolic >/= 90 - For Sedentary Lifestyle Sedentary Lifestyle Risk Guidelines: Sedentary Lifestyle Low Risk: >/= 1 ,500 kcal/week. Sedentary Lifestyle Moderate Risk: 700-1,499 kcal/week. Sedentary Lifestyle High Risk: < 700 kcal/week - For Depression Depression Risk Guidelines: Depression Low Risk: Not clinically depressed. Depression Moderate Risk: Mildly depressed. Depression High Risk: Clinically depressed - Family History Family History: Family History (Last Reviewed 01/23/18 @ 11:23 by Lakeisha Arzola) Grandfather CAD (coronary artery disease) Grandmother CAD (coronary artery disease) Aunt CAD (coronary artery disease) Other CVA (cerebral vascular accident) Motivation - Motivation to Participate On a scale of 1 to 10, how prepared are you to commit to attending program?: 10 What do you see as barriers to successfully being able to complete the program? : back issues What do you see as the benefits of succesfully completing the program? In other words, what do you hope to get out of participating in the program?: better health normal life Are there issues you are dealing with that will interfere with completing the program?: back issues Do you have a spouse or signficant other, family or friends who will help support you to complete the program?: yes
[2018-01-30 14:08] VITALS: BP 120/70
[2018-01-30 14:10] VITALS: BP 120/70; PULSE 92; O2SAT 97; BMI 37.9
== END ==
PROVIDERS: Family Provider Internal Medicine; PCP Internal Medicine
DX: I25.10 Atherosclerotic heart disease of native coronary artery without angina pectoris (principal); E78.2 Mixed hyperlipidemia; E66.9 Obesity, unspecified; L02.213 Cutaneous abscess of chest wall; Z72.0 Tobacco use; Z95.1 Presence of aortocoronary bypass graft; Z87.891 Personal history of nicotine dependence

== ENCOUNTER 2018-03-04 09:15 | Outpatient (RCR) | payer MEDICAID, SELFPAY ==
[2018-02-25 14:26] VITALS: BP 128/72; BP 134/68
--- NOTE | 2018-02-25 14:27 | CR.ITP_ITS ---
General Information - General Information Admitting Diagnosis: CABG - Education/Goals Barriers to Learning: None Individual Counselin-Day Assessment: Abnormal Cholesterol Levels, High Blood Pressure, Overweight/Obesity Cardiac Rehabilitation Goals: 1. Maintain the individual as the primary focus of care. 2. To improve the patient's quality of life. 3. Identification of cardiac risk factors and provide cardiac risk factor management. 4. Enhance the psychosocial status of the patient. 5. Reconditioning enough to allow the patient to resume customary activities. 6. Control symptoms of cardiac disease Scale for measuring improvement of personal goals: Enter appropriate number in Comments. 2 = Unchanged. 3 = Slightly Better. 4 = Moderate Improvement. 5 = Met my Goal Personal Goals: 30-day Re-assessment: Improve energy level, Get back to work, or to resume activities faster, Improve diet and eating habits (eat healthier), Control risk factors (learn risk factor modification) Exercise - 30-day Assessment - Visit Date of Eval: 02/25/18 - Exercise Prescription Mode:: Treadmill, Airdyne, NuStep Frequency (x/week): 3 - 120% MET increase Duration:: 30 METs - Progression: 0.5-1 MET as tolerated: 5.5 Target Heart Rate:: 123-132 Max HR 130 - Hypertension Resting Blood Pressure:: 128/72 Peak Exercise Blood Pressure:: 134/68 Medication Changes:: No - Intervention Home Exercise/Activity Goal:: Sitting Time <3 hrs/day - Education Goals:: Warm-up, RPE JULIANNE Scale, S/S, Safe Exercise, Self-Monitoring - Exercise Program Goals Exercise Program Goals: Aerobic Activity >30 min, B/P <130/80 Nutrition - 30-Day Assessment - Program Goals Nutrition Program Goals: LDL <70. Total Cholesterol <200. HDL >45. Triglycerides <150. HgbA1C <7%. BMI <25 - Visit Date of Eval: 02/25/18 - Stages of Change Stages of Change:: Action - Lipids Has the patient seen the dietitian?: No - Diabetes Diabetes:: No - Weight Management Weight:: 116.12 kg - Intervention Referral to dietitian:: No Referral to Diabetic Clinic:: No Will attend diet classes:: Yes - Education Attended class for:: Signs & symptoms of hypoglycemia, Signs & symptoms of hyperglycemia, Relate diabetes to coronary artery disease, Healthy eating Tobacco - 30-Day Assessment - Program Goals Tobacco Program Goals: Complete smoking cessation. Attend education classes. Improve Knowledge Test score - Stage of Change Stages of Change:: Action - Learning Barriers Learning Barriers: Participates in education - Family Support Do you have family support?: Yes - Tobacco Use Tobacco Use: Cigarettes Do you use smokeless tobacco?: No - Intervention Smoking Cessation Referral:: Yes Individual Education/Counseling:: Yes Education Schedule Given:: Yes - Education Attended class for:: Tobacco triggers, Coronary artery disease, Risk factors, Sexuality, Medical compliance, Cardiac A&P, Angina signs & symptoms Psychosocial - Initial Assess - Target Goals Target Goals: Assess presence or absence of depression. Using a valid screening tool, maximizes coping skills. Positive support system - Psychosocial Test Tool Used:: HANDS Depression Questionnaire - Assistive Devices Fall Risk Assessed:: Yes Psychosocial - 30-Day Assess - Target Goals Target Goals: Assess presence or absence of depression. Using a valid screening tool, maximizes coping skills. Positive support system - Stages of Change Stages of Change:: Action - Psychosocial Test Tool Used:: HANDS Depression Questionnaire - Intervention PS - Interventions: Yes Attend Stress Management Classes, Yes Uses Stress Management Skills, No Referral to Mental Health, No Referral to [facility] Case Management, No Referral to Physician - Education Attended classes for:: Coping techniques, Signs & symptoms of depression, Stress management, Relaxation techniques - Assistive Devices Assistive Devices:: None Fall Risk Assessed:: Yes Patient Health Questionnaire 30-Day Re-eval Assessment 1. Little interest or pleasure in doing things: More than half the days 2. Feeling down, depressed, or hopeless: Not at all 3. Trouble falling or staying asleep, or sleeping too much: Several days 4. Feeling tired or having little energy: More than half the days 5. Poor appetite or overeating: More than half the days 6. Feeling bad about yourself -- or that you are a failure or have let yourself or your family down: Not at all 7. Trouble concentrating on things, such as reading the newspaper or watching television: More than half the days 8. Moving or speaking so slowly that other people could have noticed. Or the opposite - being so fidgety or restless that you have been moving around a lot more than usual: Not at all 9. Thoughts that you would be better off , or of hurting yourself in some way: Not at all How difficult have these problems made it for you to do your work, take care of things at home, or get along with other people?: Not difficult at all Total Score: 9 Self-Efficacy 30-Day Re-eval Assessment We would like to know how confident you are in doing certain activities. Please select your confidence level for:: Select your confidence level for the following using the scale 1-10 where 1 is not at all confident and 10 is totally confident. Your score is the average of all 6 responses. Fatigue: How confident are you that you can keep the fatigue caused by your disease from interfering with the things you want to do? Select Number: 7 Physical Discomfort or Pain: How confident are you that you can keep the physical discomfort or pain of your disease from interfering with the things you want to do? Select Number: 6 Emotional Distress: How confident are you that you can keep the emotional distress caused by your disease from interfering with the things you want to do? Select Number: 5 Other Symptoms or Health Problems: How confident are you that you can keep other symptoms or health problems from interfering with the things you want to do? Select Number: 5 Different Tasks and Activities: How confident are you that you can do the different tasks and activities needed to manage your health condition so as to reduce your need to see a doctor? Select Number: 5 Medication: How confident are you that you can do things other than just taking medication to reduce how much your illness affects your everyday life? Select Number: 9 Total Score:: 6
== END 2018-03-05 23:59 ==
LOC: CR 09:15
PROVIDERS: Family Provider Internal Medicine; PCP Internal Medicine; Visit Provider Internal Medicine Cardiovascular Disease
DX: Z95.1 Presence of aortocoronary bypass graft (principal)
CPT/HCPCS: 93798

== ENCOUNTER 2018-04-01 09:15 | Outpatient (RCR) | payer MEDICAID, SELFPAY ==
[2018-03-06 00:14] VITALS: BP 128/72; BP 134/68
--- NOTE | 2018-03-27 14:22 | PCM.CR.ITP ---
General Information - General Information Admitting Diagnosis: CABG - Education/Goals Individual Counselin-Day Assessment: Abnormal Cholesterol Levels, High Blood Pressure, Overweight/Obesity Cardiac Rehabilitation Goals: 1. Maintain the individual as the primary focus of care. 2. To improve the patient's quality of life. 3. Identification of cardiac risk factors and provide cardiac risk factor management. 4. Enhance the psychosocial status of the patient. 5. Reconditioning enough to allow the patient to resume customary activities. 6. Control symptoms of cardiac disease Scale for measuring improvement of personal goals: Enter appropriate number in Comments. 2 = Unchanged. 3 = Slightly Better. 4 = Moderate Improvement. 5 = Met my Goal Personal Goals: 60-day Re-assessment: Improve energy level, Get back to work, or to resume activities faster, Improve knowledge of cardiac disease, Improve diet and eating habits (eat healthier), Control risk factors (learn risk factor modification) Exercise - 60-Day Assessment - Visit Date of Eval: 03/27/18 Session #:: 16 - 76.19% compliance - Stages of Change Stages of Change:: Action - Exercise Prescription Mode:: Treadmill, Airdyne, NuStep Frequency (x/week): 3 Duration:: 30 METs: 6 140% increase Target Heart Rate:: 141-150 max 153 - Hypertension Resting Blood Pressure:: 110/66 Peak Exercise Blood Pressure:: 150/72 Medication Changes:: No - Intervention Home Exercise/Activity Goal:: Sitting Time <3 hrs/day - Education Goals:: Warm-up, RPE JULIANNE Scale, S/S, Safe Exercise, Self-Monitoring - Exercise Program Goals Exercise Program Goals: Aerobic Activity >30 min, B/P <130/80 Nutrition - 60-Day Assessment - Program Goals Nutrition Program Goals: LDL <70. Total Cholesterol <200. HDL >45. Triglycerides <150. HgbA1C <7%. BMI <25 - Visit Date of Eval: 03/27/18 - Stages of Change Stages of Change:: Action - Lipids Has the patient seen the dietitian?: No - Diabetes Diabetes:: No - Intervention Referral to dietitian:: No Referral to Diabetic Clinic:: No Will attend diet classes:: Yes - Education Attended class for:: Signs & symptoms of hypoglycemia, Signs & symptoms of hyperglycemia, Relate diabetes to coronary artery disease, Healthy eating Tobacco - 60-Day Assessment - Program Goals Tobacco Program Goals: Complete smoking cessation. Attend education classes. Improve Knowledge Test score - Stage of Change Stages of Change:: Action - Learning Barriers Learning Barriers: Participates in education - Family Support Do you have family support?: Yes - Tobacco Use Tobacco Use: Non-smoker Do you use smokeless tobacco?: No - Intervention Smoking Cessation Referral:: No Individual Education/Counseling:: No Education Schedule Given:: Yes - Education Attended class for:: Tobacco triggers, Coronary artery disease, Risk factors, Sexuality, Medical compliance, Cardiac A&P, Angina signs & symptoms Psychosocial - 60-Day Assess - Target Goals Target Goals: Assess presence or absence of depression. Using a valid screening tool, maximizes coping skills. Positive support system - Stages of Change Stages of Change:: Action - Psychosocial Test Tool Used:: HANDS Depression Questionnaire - Intervention PS - Interventions: Yes Attend Stress Management Classes, Yes Uses Stress Management Skills, No Referral to Mental Health, No Referral to [facility] Case Management, No Referral to Physician - Education Attended classes for:: Coping techniques, Signs & symptoms of depression, Stress management, Relaxation techniques - Assistive Devices Assistive Devices:: None Fall Risk Assessed:: Yes Patient Health Questionnaire 60-Day Re-eval Assessment 1. Little interest or pleasure in doing things: Several days 2. Feeling down, depressed, or hopeless: Not at all 3. Trouble falling or staying asleep, or sleeping too much: Several days 4. Feeling tired or having little energy: Several days 5. Poor appetite or overeating: Several days 6. Feeling bad about yourself -- or that you are a failure or have let yourself or your family down: Not at all 7. Trouble concentrating on things, such as reading the newspaper or watching television: Several days 8. Moving or speaking so slowly that other people could have noticed. Or the opposite - being so fidgety or restless that you have been moving around a lot more than usual: Not at all 9. Thoughts that you would be better off , or of hurting yourself in some way: Not at all How difficult have these problems made it for you to do your work, take care of things at home, or get along with other people?: Not difficult at all Total Score: 5 Self-Efficacy 60-Day Re-eval Assessment We would like to know how confident you are in doing certain activities. Please select your confidence level for:: Select your confidence level for the following using the scale 1-10 where 1 is not at all confident and 10 is totally confident. Your score is the average of all 6 responses. Fatigue: How confident are you that you can keep the fatigue caused by your disease from interfering with the things you want to do? Select Number: 7 Physical Discomfort or Pain: How confident are you that you can keep the physical discomfort or pain of your disease from interfering with the things you want to do? Select Number: 7 Emotional Distress: How confident are you that you can keep the emotional distress caused by your disease from interfering with the things you want to do? Select Number: 7 Other Symptoms or Health Problems: How confident are you that you can keep other symptoms or health problems from interfering with the things you want to do? Select Number: 7 Different Tasks and Activities: How confident are you that you can do the different tasks and activities needed to manage your health condition so as to reduce your need to see a doctor? Select Number: 7 Medication: How confident are you that you can do things other than just taking medication to reduce how much your illness affects your everyday life? Select Number: 7 Total Score:: 7
[2018-03-27 14:27] VITALS: BP 110/66; BP 150/72
== END 2018-04-04 23:59 ==
LOC: CR 09:15
PROVIDERS: Family Provider Internal Medicine; PCP Internal Medicine; Visit Provider Internal Medicine Cardiovascular Disease
DX: Z95.1 Presence of aortocoronary bypass graft (principal)
CPT/HCPCS: 93798

== ENCOUNTER 2018-04-10 07:49 | Outpatient (RCR) | payer MEDICAID, SELFPAY ==
[2018-04-05 00:19] VITALS: BP 110/66; BP 150/72
== END 2018-05-05 23:59 ==
LOC: CR 07:49
PROVIDERS: Family Provider Internal Medicine; PCP Internal Medicine; Visit Provider Internal Medicine Cardiovascular Disease
DX: Z95.1 Presence of aortocoronary bypass graft (principal)
CPT/HCPCS: 93798

== ENCOUNTER 2018-04-21 20:10 | Observation (INO) | payer MEDICAID, SELFPAY ==
[2018-04-21] VITALS (7 sets, daily range): BP systolic 103–129; BP diastolic 50–82; PULSE 92–106; RESP 18–24; TEMP 36.9–37.1; O2SAT 94–97; BMI 35.9; BMI 35.4; BMI 36.0
--- NOTE | 2018-04-21 20:14 | ED.RN ---
CALLED FOR EKG PER RN REQUEST, PULLED OLD EKG'S FOR
--- NOTE | 2018-04-21 20:23 | EKG12_ITS ---
Test Reason : CHEST PAIN Blood Pressure : / mmHG Vent. Rate : 103 BPM Atrial Rate : 103 BPM P-R Int : 122 ms QRS Dur : 090 ms QT Int : 334 ms P-R-T Axes : 015 024 041 degrees QTc Int : 437 ms Sinus tachycardia Otherwise normal ECG Confirmed by SERGIO BAILEY, KYA ([id number]), mapping editor ZULMA BIRMINGHAM ([id number]) on 04/24/2018 1:28:54 PM Referred By: RADHA Confirmed By:KYA HILL MD
--- NOTE | 2018-04-21 20:23 | RAD_ITS ---
STUDY: X-RAY CHEST REASON FOR EXAM: Male, 42 years old. Chest pain TECHNIQUE: Single AP portable view of the chest. COMPARISON: None. FINDINGS: Multiple median sternotomy wires are noted consistent for cardiac surgery. The lungs are clear and expanded. There is no demonstrated pleural abnormality. Normal size heart. Normal mediastinum and rick. Normal visualized pulmonary arteries. Normal visualized aortic arch and descending thoracic aorta. Normal visualized thoracic spine. Normal visualized ribs, clavicles, and shoulders. There is no demonstrated abnormality of the visualized soft tissue structures of the upper abdomen. RAD/Chest 1 View (Portable) IMPRESSION: Normal x-ray examination of the chest. Electronically Signed: Ebenezer Diaz MD at 20:58 EDT , Service support ,
[2018-04-21] MEDS: Aspirin 81 MG TAB.CHEW 324 MG PO (20:32)
--- NOTE | 2018-04-21 20:35 | ED.VISSUMM ---
- ER Visit Summary Date of Service: 04/21/18 Chief Complaint: Chest pain History of Present Illness: The patient is a 42 M status post double bypass in December of this year at [facility]. Patient states that for the last 2 days he has had exertional chest pain. Said it began yesterday at 6 PM has been constant. States it feels like an elephant sitting on her chest. Worse with exertion. Better with rest. Associated shortness of breath. Mild nausea yesterday but better today. No diaphoresis. Physical Examination: Well-appearing middle-age male. Vital signs are stable. Initial blood pressure is 129/75. Pulse ox 95% room air no signs of hypoxia. HEENT exam unremarkable. Neck nontender. Lungs clear to auscultation bilaterally. Heart regular rate and rhythm no murmur. Chest wall nontender. Abdomen soft nontender nondistended normal bowel sounds no peritoneal signs. Moving all 4 extremities. Calves nontender without edema no cords. Neurologically is awake alert with no focal motor deficits. Radial pulses are equal and symmetrical. Back exam nontender. Test Results: CBC white count of 14 H&H 16 and 47. Electrolytes unremarkable potassium 3.4 normal gap normal creatinine. Troponin normal at less than 0.015. EKG sinus tachycardia rate of 103 with no acute signs of [place] or ischemia unchanged from prior EKG from 2017. Chest x-ray normal cardiac silhouette and mediastinum no acute abnormality read by myself the radiologist. Emergency Department Course and Treatment: Patient with a recent double bypass. He is describing classic chest pain are normal. May be cardiac. He will undergo cardiac workup. P.o. aspirin. Nitroglycerin paste. Treatment Plan: Repeat exam doing well at 2151. Currently pain-free. Disposition: Admission Impression: Acute chest pain Status post double bypass surgery This note was generated with [employer] dictation software. It may contain incorrect words, spelling, and punctuation that were not noted in review of the chart prior to signing ED Disposition - Plan for ED Patient: Chief Complaint: Chest Pain Referrals: Tierra Jensen MD [Primary Care Provider] -
--- NOTE | 2018-04-21 20:38 | ED.DCSUM_ITS ---
- ER Visit Summary Date of Service: 04/21/18 Chief Complaint: Chest pain History of Present Illness: The patient is a 42 M status post double bypass in December of this year at [facility]. Patient states that for the last 2 days he has had exertional chest pain. Said it began yesterday at 6 PM has been constant. States it feels like an elephant sitting on her chest. Worse with exertion. Better with rest. Associated shortness of breath. Mild nausea yesterday but better today. No diaphoresis. Physical Examination: Well-appearing middle-age male. Vital signs are stable. Initial blood pressure is 129/75. Pulse ox 95% room air no signs of hypoxia. HEENT exam unremarkable. Neck nontender. Lungs clear to auscultation bilaterally. Heart regular rate and rhythm no murmur. Chest wall nontender. Abdomen soft nontender nondistended normal bowel sounds no peritoneal signs. Moving all 4 extremities. Calves nontender without edema no cords. Neurologically is awake alert with no focal motor deficits. Radial pulses are equal and symmetrical. Back exam nontender. Test Results: CBC white count of 14 H&H 16 and 47. Electrolytes unremarkable potassium 3.4 normal gap normal creatinine. Troponin normal at less than 0.015. EKG sinus tachycardia rate of 103 with no acute signs of [place] or ischemia unchanged from prior EKG from 2017. Chest x-ray normal cardiac silhouette and mediastinum no acute abnormality read by myself the radiologist. Emergency Department Course and Treatment: Patient with a recent double bypass. He is describing classic chest pain are normal. May be cardiac. He will undergo cardiac workup. P.o. aspirin. Nitroglycerin paste. Treatment Plan: Repeat exam doing well at 2151. Currently pain-free. Disposition: Admission Impression: Acute chest pain Status post double bypass surgery This note was generated with [employer] dictation software. It may contain incorrect words, spelling, and punctuation that were not noted in review of the chart prior to signing ED Disposition - Plan for ED Patient: Chief Complaint: Chest Pain Referrals: Tierra Jensen MD [Primary Care Provider] -
[2018-04-21 20:42] LABS: Absolute Lymphocyte Count 2.87 X10^3/ul (0.83-4.51); Absolute Neutrophil Count 9.6 X10^3/uL (2.0-7.7); Basophil# 0.06 X10^3/uL; Basophil% 0.4 % (0-1); Eosinophil# 0.31 X10^3/uL; Eosinophils% 2.2 % (0-5); Hematocrit 47.4 % (40-54); Hemoglobin 16.4 g/dl (13.0-16.5); Lymphocyte # 2.87 X10^3/ul (4.0); Lymphocyte % 19.9 % (19-41); Mean Corp Hgb Conc 34.6 g/gl (32-36); Mean Corpuscular Hgb 30.4 pg (27.0-32.0); Mean Corpuscular Volume 87.9 fL (80-94); Mean Platelet Vol. 10.7 fl (6.2-12.0); Monocyte# 1.56 X10^3/uL; Monocyte% 10.8 % (0-10); Neutrophil # 9.57 X10^3/uL (2.7-7.7); Neutrophil % 66.6 % (47-70); Platelet Count 273 K/mm3 (150-450); RBC Distribution Width CV 13.7 % (11.6-14.6); RBC Distribution Width SD 44.2 fl (35.1-43.9); Red Blood Count 5.39 M/mm3 (4.6-6.2); White Blood Count 14.4 K/mm3 (4.4-11.0)
[2018-04-21 20:48] LABS: Anion Gap 7 (5-15); BUN 7 mg/dL (7-18); BUN/Creat Ratio 6.4 RATIO (10-20); Chloride 103 mmol/L (98-107); EST Glomerular Filtration Rate 78 mL/min (>60); Est Glom Filt Rate - Afr Amer 94 mL/min (>60); Estimated Creatinine Clearance 92.22 ml/min; Glucose 120 mg/dL (74-106); Potassium 3.4 mmol/L (3.5-5.1); Sodium Level 140 mmol/L (136-145)
[2018-04-21] MEDS: Nitroglycerin Oint 1 INCH PACKET TRANSDERM. ×2 (20:52→23:10)
[2018-04-21 21:13] LABS: Differential Indicated SCAN CRITERIA MET; POSITIVE COUNT NO; POSITIVE DIFFERENTIAL YES; POSITIVE MORPHOLOGY NO
[2018-04-21 21:21] LABS: Platelet Estimate ADEQUATE (ADEQ); Red Cell Morphology NORM C+C NORMAL (NORM C&C)
--- NOTE | 2018-04-21 21:55 | HP.PCM_ITS ---
Problem List (1) Chest pain Status: Acute (2) Hypokalemia Status: Acute (3) Hypertension Status: Acute History of Present Illness Date of Admission: 04/21/18 Chief Complaint: chest pain The patient is a 42 year old M with a significant history of CAD status post BRAGA to LAD and SVG to PDA on 12/24/17, hyperlipidemia who presented with excruciating progressively worsening chest pain that started a day before this admission. Patient describes his chest pain as somebody sitting on his chest. His chest pain was reminiscent of his previous chest pain. Since his chest pain began his home blood pressure has been 180s over 100s although he reports no previous history of high blood pressure. Patient called the ED and he was advised to take an extra dose of metoprolol. An extra dose of metoprolol did not help his symptoms. Patient stated that Dr. Hall's (cardiology) contacted him on the day of admission and prescribed losartan. Patient took losartan before presenting himself at emergency department. His chest pain increases with activity. His chest pain was relieved when he received topical nitroglycerin at emergency department. Associated with his chest pain is shortness of breath. Of note, patient was in a cardiac rehab program but he has to stop to go to work. Past Medical History Past Medical History (Chronic Problems): Chronic Problems (Last Reviewed 01/23/18 @ 11:22 by Lakeisha Arzola) Atherosclerotic heart disease of [place] coronary artery without angina pectoris (Chronic) BRAGA to LAD, SVG to PDA of RCA Per Dr. Pancho Temple [facility] 12/24/2017 S/P CABG x 2 (Chronic) BRAGA to LAD, SVG to PDA of RCA Per Dr. Pancho Temple [facility] 12/24/2017 Mixed hyperlipidemia (Chronic) Obesity (BMI 30-39.9) (Chronic) Nicotine abuse (Chronic) Medical History: Medical History (Last Reviewed 01/23/18 @ 11:22 by Lakeisha Arzola) Atherosclerotic heart disease of [place] coronary artery without angina pectoris (Chronic) I25.10 BRAGA to LAD, SVG to PDA of RCA Per Dr. Pancho Temple [facility] 12/24/2017 Mixed hyperlipidemia (Chronic) E78.2 Obesity (BMI 30-39.9) (Chronic) E66.9 Nicotine abuse (Chronic) Z72.0 Cutaneous abscess of chest wall L02.213 Allergies Penicillins Allergy (Verified 04/21/18 20:14) Anaphylaxis Home Medications: Ambulatory Orders Medication Instructions Recorded aspirin 81 mg tablet,delayed 81 mg PO QDAY tab 12/16/17 release metoprolol tartrate 50 mg tablet 50 mg PO BID tab 01/22/18 atorvastatin 80 mg tablet 80 mg PO QDAY #90 tab 01/23/18 losartan 25 mg tablet 25 mg PO QDAY #30 tab 04/21/18 Surgical History: Surgical History (Last Reviewed 01/23/18 @ 11:23 by Lakeisha Arzola) S/P CABG x 2 (Chronic) Z95.1 BRAGA to LAD, SVG to PDA of RCA Per Dr. Pancho Temple [facility] 12/24/2017 Lives: Spouse/ Significant Other Smoking Status: Former smoker Tobacco Use: Non-smoker - *Family History Maternal Family History: Family History (Last Reviewed 04/21/18 @ 22:27 by Bob Jennings MD) Grandfather CAD (coronary artery disease) Grandmother CAD (coronary artery disease) Aunt CAD (coronary artery disease) Other CVA (cerebral vascular accident) Review of Systems Constitutional: Reports: - - Diaphoresis Eyes: Denies: Blurred vision, Pain HEENT: Denies: Head Aches, Sinus Congestion, Sinus Drainage Cardiovascular: Reports: Chest Pain, Chest Pressure Respiratory: Reports: Cough Gastrointestinal: Reports: Nausea Genitourinary: Denies: Dysuria Musculoskeletal: Denies: Joint Pain, Joint Tenderness Skin: Denies: Rash, Wounds Neurological: Denies: Numbness, Tingling, Focal weakness Psychiatric: Denies: Anxiety, Depression, Homicidal Ideations, Suicidal Ideations Hematologic/ Lymphatic: Denies: Easy Bruising, Easy Bleeding VTE Information - Inpt Only VTE Present on Admission: No VTE Mechan Device Prophylaxis: None VTE Pharm Prophylaxis ordered?: Yes Patient Problems: Active and Suspected Problems (Last Reviewed 01/23/18 @ 11:22 by Lakeisha Arzola) Hypokalemia (Acute) Hypertension (Acute) - Physical Exam General: Alert, Oriented x3, Cooperative HEENT: Atraumatic, PERRLA, EOMI, Normocephalic Neck: Supple, No JVD, Negative Carotid Bruits Lungs: Clear to auscultation, Normal air movement Cardiovascular: - - Nontender. Healed midline incision scar on sternum Abdomen: Bowel Sounds Present, Soft, Non Tender Extremities: No edema, Capillary Refill Less than 3 Seconds Skin: No rashes, No breakdown Musculoskeletal: No Tenderness to Palpation of Joints or Extremities Lymphatic: No Cervical, Supraclavicular, or Inguinal Adenopathy Neurological: Cranial nerves II-XII grossly intact Psych/Mental Status: Normal Affect, Appropriate Vital Signs Temp Pulse Resp BP Pulse Ox 98.7 F 106 H 24 H 123/82 H 95 04/21/18 20:15 04/21/18 20:52 04/21/18 20:15 04/21/18 20:52 04/21/18 20:15 Oxygen Flow Rate (L/min) 2 Oxygen Delivery Method Nasal Cannula Weight: 117 kg Body Mass Index (BMI) 35.9 Laboratory Tests Past 24 Hrs 04/21/18 04/21/18 20:13 20:13 WBC 14.4 H RBC 5.39 Hgb 16.4 Hct 47.4 MCV 87.9 MCH 30.4 MCHC 34.6 RDW 13.7 RDW Differential 44.2 H Plt Count 273 MPV 10.7 Immature Gran % (Auto) 0.100 Neut % (Auto) 66.6 Lymph % (Auto) 19.9 [place] % (Auto) 10.8 H Eos % (Auto) 2.2 Baso % (Auto) 0.4 Absolute Neuts (auto) 9.6 H Absolute Lymphs (auto) 2.87 Total Counted Not Reportable Differential Comment SEE COMMENT Diff Path Review May foll Platelet Estimate ADEQUATE RBC Morphology NORM C+C Sodium 140 Potassium 3.4 L Chloride 103 Carbon Dioxide 30.0 Anion Gap 7 BUN 7 Creatinine 1.10 Estim Creat Clear Calc 92.22 Est GFR (MDRD) Af Amer 94 Est GFR (MDRD) Non-Af 78 BUN/Creatinine Ratio 6.4 L Glucose 120 H Calcium 9.0 Troponin I < 0.015 Assessment/Plan All Active Problems (Last Reviewed 01/23/18 @ 11:22 by Lakeisha Arzola) Hypokalemia (Acute) Hypertension (Acute) Chest pain (Acute) Abnormal nuclear stress test (Acute) The patient is a 42 year old M with a significant history of CAD status post BRAGA to LAD and SVG to PDA on 12/24/17; hyperlipidemia who presented with typical chest pain and elevated blood pressure concerning for cardiac origin of chest pain. Chest pain This could be due to clogged arteries of of his graft, or the effect of extremely elevated blood pressure, coronary microvascular disease or other. EKG with mild sinus tachycardia; unremarkable otherwise. Status post aspirin 324 mg. Continue aspirin 81 mg daily Continue high intensity statin Topical nitroglycerin Metoprolol and losartan continued Serial cardiac enzymes. Urine drug screen Since patient is a known patient of Dr. Hall will consult cardiology. Leukocytosis Likely reactive repeat CBC Hypertension This could be due to essential hypertension or high blood pressure blood pressure due to his chest pain Continue metoprolol and losartan as above Topical nitroglycerin Hypokalemia Mild hypokalemia of 3.4. Replaced Check magnesium Hyperlipidemia High intensity statin. DVT prophylaxis with subcutaneous Lovenox Code Visit Inpatient E&M: 76014 Init Hosp L2
--- NOTE | 2018-04-21 23:21 | EKG12_ITS ---
Test Reason : CP REPEAT Blood Pressure : / mmHG Vent. Rate : 091 BPM Atrial Rate : 091 BPM P-R Int : 124 ms QRS Dur : 086 ms QT Int : 360 ms P-R-T Axes : 018 035 050 degrees QTc Int : 442 ms Normal sinus rhythm Normal ECG When compared with ECG of 08-NOV-2017 17:22, ST elevation now present in Inferior leads Confirmed by SERGIO BAILEY, KYA ([id number]), assistant production editor ZULMA BIRMINGHAM ([id number]) on 04/24/2018 1:52:43 PM Referred By: Confirmed By:KYA HILL MD
[2018-04-22] VITALS (10 sets, daily range): BP systolic 111–128; BP diastolic 53–82; PULSE 79–105; RESP 14–18; TEMP 36.6–36.9; O2SAT 91–95
[2018-04-22 03:33] LABS: Hematocrit 44.8 % (40-54); Hemoglobin 15.3 g/dl (13.0-16.5); Mean Corp Hgb Conc 34.2 g/gl (32-36); Mean Corpuscular Hgb 30.1 pg (27.0-32.0); Mean Corpuscular Volume 88.2 fL (80-94); Platelet Count 258 K/mm3 (150-450); RBC Distribution Width CV 13.9 % (11.6-14.6); RBC Distribution Width SD 44.2 fl (35.1-43.9); Red Blood Count 5.08 M/mm3 (4.6-6.2); White Blood Count 11.6 K/mm3 (4.4-11.0)
[2018-04-22 03:34] LABS: Scan Indicated on CBC? Y/N NO
[2018-04-22 04:33] LABS: Anion Gap 9 (5-15); BUN 8 mg/dL (7-18); BUN/Creat Ratio 9.3 RATIO (10-20); Calcium,Total 8.5 mg/dL (8.5-10.1); Chloride 108 mmol/L (98-107); Creatinine, Serum 0.86 mg/dL (0.70-1.30); EST Glomerular Filtration Rate 103 mL/min (>60); Est Glom Filt Rate - Afr Amer 125 mL/min (>60); Estimated Creatinine Clearance 117.96 ml/min; Glucose 108 mg/dL (74-106); Potassium 3.7 mmol/L (3.5-5.1); Sodium Level 143 mmol/L (136-145)
[2018-04-22] MEDS: Nitroglycerin Oint 1 INCH PACKET TRANSDERM. (06:00)
--- NOTE | 2018-04-22 07:39 | STEWCON_ITS ---
Reason For Study: CHEST PAIN Stress Results Protocol: Mat Protocol Maximum Predicted HR: 177 bpm Target HR: 150 bpm% Max imum Predicted HR: 86 % DurationHeart Rate Stage (mm:ss) (bpm) BPCom ment BASELINE 100 116/6 22 CC DEFINITY STAGE 1 3:00 12 7 152/60 STAGE 2 3:00 14 6 170/602CC DEFINITY STAGE 3 0:45 15 3 / RECOVERY 118 150/8 0 Stress Duration: 6:45 mm:ss Maximum Stress HR: 153 bpm Baseline Echocardiogram Findings The estimated ejection fraction is 65 %. Stress Echo Wall motion Data Resting WMIntermediate WMStress WM Resting Wall Motion Wall Motion Stress No regional wall motion No regional wall motion abnormalities noted. abnormalities noted. EKG Data The baseline ECG demonstrates normal sinus rhythm with at rate of _ beats per minute. The patient exercised according to the regular Mat protocol for a total duration of 6:45. The maximum heart rate attained was 157 beats per minute. This was 88% of maximum predicted heart rate. The patient exercised into stage 3 of the Mat protocol. During stress, there were no ST or T wave changes noted to suggest ischemia. No clinical angina was noted. No arrhythmias noted. Interpretation Summary The study was technically difficult. Contrast injection was performed. The estimated ejection fraction is 65 %. Normal, adequate, treadmill echocardiogram. Negative for ischemia by EKG and echocardiographic criteria. No anginal symptoms noted. No arrhythmias noted. Appropriate blood pressure response to exercise. Slightly below normal exercise capacity. Final LVEF is 75%. Decreased sensitivity due to poor echo windows and use of Definity enhancing agent. No complications. Ordering Physician: Tyler Hall Referring Physician: Tyler Hall Performed By: Elaine Holden RDCS
--- NOTE | 2018-04-22 08:26 | PCM.CONS.C ---
Problem List (1) Atherosclerotic heart disease of [place] coronary artery without angina pectoris Status: Chronic Comment: BRAGA to LAD, SVG to PDA of RCA Per Dr. Pancho Temple [facility] 12/24/2017 (2) S/P CABG x 2 Status: Chronic Comment: BRAGA to LAD, SVG to PDA of RCA Per Dr. Pancho Temple [facility] 12/24/2017 (3) Mixed hyperlipidemia Status: Chronic (4) Obesity (BMI 30-39.9) Status: Chronic Reason for Consult Date of Consultation: 04/22/18 Reason for Consultation: New onset chest pain, coronary artery disease, status post CABG, hypertension, hypercholesterolemia, former smoker History of Present Illness: The patient is a 42 year old M, nondiabetic, hypertensive, hypercholesterolemia, obesity, coronary artery disease status post two-vessel bypass surgery by Dr. Temple in December 2017. Patient presented with substernal chest pressure at that time and had abnormal nuclear stress test which precipitated a catheterization. This demonstrated a critical lesion in his mid LAD as well as an occluded right coronary artery with left to right collaterals. Patient underwent two-vessel bypass surgery by Dr. Temple at [facility] in December 2017 at which time he received a BRAGA to the LAD and a saphenous vein graft to the PDA. The patient recuperated normally, was seen in our office postoperatively and was doing well. Patient was admitted to cardiac rehab and completed cardiac rehab without complications. Patient was in his stable taking care of his horses yesterday when he developed substernal chest pressure and shortness of breath similar to his angina prior to his bypass surgery. He was found to be very hypertensive, called our office, and antihypertensive medications were administered. Despite this his chest pain continued, and when it did not improve he sought medical attention at [facility]. His initial EKG showed normal sinus rhythm, normal axis, normal intervals, no acute changes. His troponins have been negative ?3. Prior to this he had had no chest pain, angina, shortness of breath or dyspnea and has been taking his medicines well. Upon arrival he was found to be hypertensive and his chest pain was relieved with sublingual nitroglycerin and subsequent Nitropaste. He has had no further chest pain overnight. Telemetry is been negative. [] Past Medical History Allergies/Adverse Reactions: Allergies Penicillins Allergy (Verified 04/21/18 20:14) Anaphylaxis Home Medications: Ambulatory Orders Medication Instructions Recorded aspirin 81 mg tablet,delayed 81 mg PO QDAY tab 12/16/17 release metoprolol tartrate 50 mg tablet 50 mg PO BID tab 01/22/18 atorvastatin 80 mg tablet 80 mg PO QDAY #90 tab 01/23/18 losartan 25 mg tablet 25 mg PO QDAY #30 tab 04/21/18 Past Medical History (Chronic Problems): Chronic Problems (Last Reviewed 01/23/18 @ 11:22 by Lakeisha Arzola) Atherosclerotic heart disease of [place] coronary artery without angina pectoris (Chronic) BRAGA to LAD, SVG to PDA of RCA Per Dr. Pancho Temple [facility] 12/24/2017 S/P CABG x 2 (Chronic) BRAGA to LAD, SVG to PDA of RCA Per Dr. Pancho Temple [facility] 12/24/2017 Mixed hyperlipidemia (Chronic) Obesity (BMI 30-39.9) (Chronic) Nicotine abuse (Chronic) - *Family History Maternal Family History: Family History (Last Reviewed 04/21/18 @ 22:27 by Bob Jennings MD) Grandfather CAD (coronary artery disease) Grandmother CAD (coronary artery disease) Aunt CAD (coronary artery disease) Other CVA (cerebral vascular accident) Lives: Spouse/ Significant Other Smoking Status: Former smoker Tobacco Use: Non-smoker Review of Systems - Review of Systems General: Denies: Fever, Night Sweats, Fatigue Cardiovascular: Reports: Chest Discomfort, Chest Discomfort with Exertion. Denies: Shortness of Breath, Orthopnea, PND, Peripheral Edema, Palpitations, Lightheadedness, Dizziness, Near Syncope, Syncope Respiratory: Denies: Cough, Sputum Production, Hemoptysis Gastrointestinal: Denies: Hematemesis, Hematochezia, Melena Genitourinary: Denies: Dysuria, Hematuria Skin: Denies: Rash Subjectve: Patient laying in bed, no acute distress. Objective: Vital Signs Temp Pulse Resp BP Pulse Ox 98.4 F 96 16 111/57 L 94 04/22/18 07:58 04/22/18 07:59 04/22/18 07:58 04/22/18 07:58 04/22/18 07:58 Oxygen Flow Rate (L/min) 2 Oxygen Delivery Method Room Air Weight: 254 lb 6.615 oz Body Mass Index (BMI) 35.4 Intake and Output for Last 24 Hours 04/20/18 04/21/18 04/22/18 23:59 23:59 23:59 Intake Total 240 / 240 Balance 240 / 240 General: Awake, Alert, Oriented x 3 HEENT: PERRL, EOMI, Sclera Non Icteric Neck: Supple, Good ROM, No Lymph Node Enlargement Lungs: Clear to auscultation Cardiovascular: Regular Rhythm, Normal S1, Normal S2, No Murmurs, No Rubs, No Gallops Vascular: No Carotid Bruits, Normal Femoral Pulses, Normal Radial Pulses, Normal Dorsalis Pedal Pulse, Normal Posterior Tibial Pulses Abdomen: Bowel Sounds Present, Soft, Non Tender, No HSM, No Organomegaly Extremities: No Cyanosis, No Clubbing, No edema Neurological: No Focal Motor or Sensory Deficit 04/21/18 23:50: Troponin I < 0.015 04/22/18 02:58: WBC 11.6 H, RBC 5.08, Hgb 15.3, Hct 44.8, MCV 88.2, MCH 30.1, MCHC 34.2, RDW 13.9, RDW Differential 44.2 H, Plt Count 258, MPV 11.0 04/22/18 02:58: Sodium 143, Potassium 3.7, Chloride 108 H, Carbon Dioxide 26.0, Anion Gap 9, BUN 8, Creatinine 0.86, Est GFR (MDRD) Af Amer 125, Est GFR (MDRD) Non-Af 103, BUN/Creatinine Ratio 9.3 L, Glucose 108 H, Calcium 8.5 04/22/18 02:58: Troponin I < 0.015 04/22/18 05:20: Troponin I < 0.015 Rhythm: EKG: ECHO: Stress Test: Cardiac Cath: PCI: CT Surgery: Holter monitor: EPS: PPM: CXR: Chest CT Scan: Assessment/Plan 1. Coronary artery disease: The patient has recurrent anginal symptoms similar to his chest pain prior to his bypass surgery. This is superimposed upon severe hypertension which may be an anginal inducer. His EKG and troponins are negative. I recommended the patient undergo a treadmill echocardiogram to evaluate for graft patency as well as exercise capacity, blood pressure response to exercise, and ischemia. If it is grossly abnormal he will require repeat catheterization and graft angiography. If however there is no wall motion abnormalities, and his blood pressure response is elevated I would recommend antihypertensive therapy in the form of his Lopressor 50 mill grams p.o. twice daily, and initiating Hyzaar 50/12.5 mg a day to assist with diastolic hypertension. I would not recommend discharge until the patient has demonstrated ambulation without hypertension and without exertional chest pain. 2. Hyperlipidemia: Recommend obtaining a fasting lipid profile. His LDL should be less than 70. Continue Lipitor. 3. Thank you very much for the opportunity to put dissipate in the cardiac care of your patient. Consultation time was between 8 AM and 8:30 AM. Code Visit Inpatient E&M: 71613 Init Hosp L2
--- NOTE | 2018-04-22 08:33 | CON.PCM_ITS ---
Problem List (1) Atherosclerotic heart disease of [place] coronary artery without angina pectoris Status: Chronic Comment: BRAGA to LAD, SVG to PDA of RCA Per Dr. Pancho Temple [facility] 12/24/2017 (2) S/P CABG x 2 Status: Chronic Comment: BRAGA to LAD, SVG to PDA of RCA Per Dr. Pancho Temple [facility] 12/24/2017 (3) Mixed hyperlipidemia Status: Chronic (4) Obesity (BMI 30-39.9) Status: Chronic Reason for Consult Date of Consultation: 04/22/18 Reason for Consultation: New onset chest pain, coronary artery disease, status post CABG, hypertension, hypercholesterolemia, former smoker History of Present Illness: The patient is a 42 year old M, nondiabetic, hypertensive, hypercholesterolemia , obesity, coronary artery disease status post two-vessel bypass surgery by Dr. Temple in December 2017. Patient presented with substernal chest pressure at that time and had abnormal nuclear stress test which precipitated a catheterization. This demonstrated a critical lesion in his mid LAD as well as an occluded right coronary artery with left to right collaterals. Patient underwent two-vessel bypass surgery by Dr. Temple at [facility] in December 2017 at which time he received a BRAGA to the LAD and a saphenous vein graft to the PDA. The patient recuperated normally, was seen in our office postoperatively and was doing well. Patient was admitted to cardiac rehab and completed cardiac rehab without complications. Patient was in his stable taking care of his horses yesterday when he developed substernal chest pressure and shortness of breath similar to his angina prior to his bypass surgery. He was found to be very hypertensive, called our office , and antihypertensive medications were administered. Despite this his chest pain continued, and when it did not improve he sought medical attention at [facility]. His initial EKG showed normal sinus rhythm, normal axis, normal intervals, no acute changes. His troponins have been negative ?3. Prior to this he had had no chest pain, angina, shortness of breath or dyspnea and has been taking his medicines well. Upon arrival he was found to be hypertensive and his chest pain was relieved with sublingual nitroglycerin and subsequent Nitropaste. He has had no further chest pain overnight. Telemetry is been negative. [] Past Medical History Allergies/Adverse Reactions: Allergies Penicillins Allergy (Verified 04/21/18 20:14) Anaphylaxis Home Medications: Ambulatory Orders Medication Instructions Recorded aspirin 81 mg tablet,delayed 81 mg PO QDAY tab 12/16/17 release metoprolol tartrate 50 mg tablet 50 mg PO BID tab 01/22/18 atorvastatin 80 mg tablet 80 mg PO QDAY #90 tab 01/23/18 losartan 25 mg tablet 25 mg PO QDAY #30 tab 04/21/18 Past Medical History (Chronic Problems): Chronic Problems (Last Reviewed 01/23/18 @ 11:22 by Lakeisha Arzola) Atherosclerotic heart disease of [place] coronary artery without angina pectoris (Chronic) BRAGA to LAD, SVG to PDA of RCA Per Dr. Pancho Temple [facility] 12/24/2017 S/P CABG x 2 (Chronic) BRAGA to LAD, SVG to PDA of RCA Per Dr. Pancho Temple [facility] 12/24/2017 Mixed hyperlipidemia (Chronic) Obesity (BMI 30-39.9) (Chronic) Nicotine abuse (Chronic) - *Family History Maternal Family History: Family History (Last Reviewed 04/21/18 @ 22:27 by Bob Jennings MD) Grandfather CAD (coronary artery disease) Grandmother CAD (coronary artery disease) Aunt CAD (coronary artery disease) Other CVA (cerebral vascular accident) Lives: Spouse/ Significant Other Smoking Status: Former smoker Tobacco Use: Non-smoker Review of Systems - Review of Systems General: Denies: Fever, Night Sweats, Fatigue Cardiovascular: Reports: Chest Discomfort, Chest Discomfort with Exertion. Denies: Shortness of Breath, Orthopnea, PND, Peripheral Edema, Palpitations, Lightheadedness, Dizziness, Near Syncope, Syncope Respiratory: Denies: Cough, Sputum Production, Hemoptysis Gastrointestinal: Denies: Hematemesis, Hematochezia, Melena Genitourinary: Denies: Dysuria, Hematuria Skin: Denies: Rash Subjectve: Patient laying in bed, no acute distress. Objective: Vital Signs Temp Pulse Resp BP Pulse Ox 98.4 F 96 16 111/57 L 94 04/22/18 07:58 04/22/18 07:59 04/22/18 07:58 04/22/18 07:58 04/22/18 07:58 Oxygen Flow Rate (L/min) 2 Oxygen Delivery Method Room Air Weight: 254 lb 6.615 oz Body Mass Index (BMI) 35.4 Intake and Output for Last 24 Hours 04/20/18 04/21/18 04/22/18 23:59 23:59 23:59 Intake Total 240 / 240 Balance 240 / 240 General: Awake, Alert, Oriented x 3 HEENT: PERRL, EOMI, Sclera Non Icteric Neck: Supple, Good ROM, No Lymph Node Enlargement Lungs: Clear to auscultation Cardiovascular: Regular Rhythm, Normal S1, Normal S2, No Murmurs, No Rubs, No Gallops Vascular: No Carotid Bruits, Normal Femoral Pulses, Normal Radial Pulses, Normal Dorsalis Pedal Pulse, Normal Posterior Tibial Pulses Abdomen: Bowel Sounds Present, Soft, Non Tender, No HSM, No Organomegaly Extremities: No Cyanosis, No Clubbing, No edema Neurological: No Focal Motor or Sensory Deficit 04/21/18 23:50: Troponin I < 0.015 04/22/18 02:58: WBC 11.6 H, RBC 5.08, Hgb 15.3, Hct 44.8, MCV 88.2, MCH 30.1, MCHC 34.2, RDW 13.9, RDW Differential 44.2 H, Plt Count 258, MPV 11.0 04/22/18 02:58: Sodium 143, Potassium 3.7, Chloride 108 H, Carbon Dioxide 26.0, Anion Gap 9, BUN 8, Creatinine 0.86, Est GFR (MDRD) Af Amer 125, Est GFR (MDRD) Non-Af 103, BUN/Creatinine Ratio 9.3 L, Glucose 108 H, Calcium 8.5 04/22/18 02:58: Troponin I < 0.015 04/22/18 05:20: Troponin I < 0.015 Rhythm: EKG: ECHO: Stress Test: Cardiac Cath: PCI: CT Surgery: Holter monitor: EPS: PPM: CXR: Chest CT Scan: Assessment/Plan 1. Coronary artery disease: The patient has recurrent anginal symptoms similar to his chest pain prior to his bypass surgery. This is superimposed upon severe hypertension which may be an anginal inducer. His EKG and troponins are negative. I recommended the patient undergo a treadmill echocardiogram to evaluate for graft patency as well as exercise capacity, blood pressure response to exercise, and ischemia. If it is grossly abnormal he will require repeat catheterization and graft angiography. If however there is no wall motion abnormalities, and his blood pressure response is elevated I would recommend antihypertensive therapy in the form of his Lopressor 50 mill grams p.o. twice daily, and initiating Hyzaar 50/12.5 mg a day to assist with diastolic hypertension. I would not recommend discharge until the patient has demonstrated ambulation without hypertension and without exertional chest pain. 2. Hyperlipidemia: Recommend obtaining a fasting lipid profile. His LDL should be less than 70. Continue Lipitor. 3. Thank you very much for the opportunity to put dissipate in the cardiac care of your patient. Consultation time was between 8 AM and 8:30 AM. Code Visit Inpatient E&M: 26797 Init Hosp L2
[2018-04-22 11:00] LABS: Cholesterol 105 mg/dL (200); High Density Lipoprotein 19 mg/dL; Triglycerides 138 mg/dL; Very Low Density Lipoprotein 28 mg/dL (5-40)
[2018-04-22] MEDS: Aspirin E.C. 81 MG Tablet PO (11:16)
[2018-04-22] MEDS: Losartan Potassium 50 MG Tablet PO (11:17)
[2018-04-22] MEDS: Metoprolol Tartrate 50 MG Tablet PO (11:17)
[2018-04-22] MEDS: HYDROCHLOROTHIAZIDE 12.5 MG CAPSULE PO (11:17)
[2018-04-22] MEDS: Enoxaparin 40 MG/0.4 ML Syringe SC (11:18)
--- NOTE | 2018-04-22 12:24 | PCM.PROGNOTE ---
Patient Problems: Active and Suspected Problems (Last Reviewed 01/23/18 @ 11:22 by Lakeisha Arzola) Hypokalemia (Acute) Hypertension (Acute) Subjective: improved SOB and CP. Still some midsternal CP this morning. no longer radiating to back. no radiation to neck or arm. No dizzyness/lh palp or leg swelling. - Physical Exam General: Alert, Oriented x3, Cooperative HEENT: Atraumatic, PERRLA, EOMI, Normocephalic Neck: Supple, No JVD, Negative Carotid Bruits Lungs: Clear to auscultation, Normal air movement Cardiovascular: Regular rate, No murmurs Abdomen: Bowel Sounds Present, Soft, Non Tender Extremities: No edema, Capillary Refill Less than 3 Seconds Skin: No rashes, No breakdown Musculoskeletal: No Tenderness to Palpation of Joints or Extremities Neurological: Cranial nerves II-XII grossly intact Psych/Mental Status: Normal Affect, Appropriate, Alert and oriented to time, place, person, mood and affect Vital Signs Temp Pulse Resp BP Pulse Ox 98.2 F 102 H 16 111/67 95 04/22/18 11:29 04/22/18 11:29 04/22/18 11:29 04/22/18 11:29 04/22/18 11:29 Oxygen Flow Rate (L/min) 2 Oxygen Delivery Method Room Air Weight: 254 lb 6.615 oz Body Mass Index (BMI) 35.4 Intake and Output for Last 24 Hours 04/20/18 04/21/18 04/22/18 23:59 23:59 23:59 Intake Total 440 / 440 Balance 440 / 440 Laboratory Tests Past 24 Hrs 04/21/18 04/22/18 04/22/18 23:50 02:58 02:58 WBC 11.6 H RBC 5.08 Hgb 15.3 Hct 44.8 MCV 88.2 MCH 30.1 MCHC 34.2 RDW 13.9 RDW Differential 44.2 H Plt Count 258 MPV 11.0 Sodium 143 Potassium 3.7 Chloride 108 H Carbon Dioxide 26.0 Anion Gap 9 BUN 8 Creatinine 0.86 Estim Creat Clear Calc 117.96 Est GFR (MDRD) Af Amer 125 Est GFR (MDRD) Non-Af 103 BUN/Creatinine Ratio 9.3 L Glucose 108 H Calcium 8.5 Troponin I < 0.015 Triglycerides Cholesterol LDL Cholesterol VLDL Cholesterol HDL Cholesterol 04/22/18 04/22/18 04/22/18 02:58 05:20 05:20 WBC RBC Hgb Hct MCV MCH MCHC RDW RDW Differential Plt Count MPV Sodium Potassium Chloride Carbon Dioxide Anion Gap BUN Creatinine Estim Creat Clear Calc Est GFR (MDRD) Af Amer Est GFR (MDRD) Non-Af BUN/Creatinine Ratio Glucose Calcium Troponin I < 0.015 < 0.015 Triglycerides 138 Cholesterol 105 LDL Cholesterol 58 VLDL Cholesterol 28 HDL Cholesterol 19 L Medical Necessity - Tobacco Use Smoking Status: Former smoker Tobacco Use: Non-smoker Assessment/Plan All Active Problems (Last Reviewed 01/23/18 @ 11:22 by Lakeisha Arzola) Hypokalemia (Acute) Hypertension (Acute) Chest pain (Acute) Abnormal nuclear stress test (Acute) 1. Chest pain hx CAD - Dr. Hall following. Stress test today pending. Neg trop. Neg tele. Neg ekg. ldl at goal. Mildly tachy. bp stable. Prior CABG. Continue asa, statin, hctz, lopressor, losartan. 2. HTN - now improved with additional agents. 3. Hypokalemia - resolved. mag normal. DVT ppx: Lovenox DC planning: pending results of stress This patient was seen by Ovidio Marie PA-C under the supervision of Doctor Xu.
[2018-04-22 13:28] LABS: Pathologist Review Reviewed
--- NOTE | 2018-04-22 14:34 | PCM.DC ---
- Discharge Diagnoses Current Active Problems: Current Active and Chronic Problems (Last Reviewed 01/23/18 @ 11:22 by Lakeisha Arzola) (1) Chest Pain w/ underlying CAD, ACS ruled out, Unremarkable stress testing (2) Hypertension, Noted during stress testing at per patient report at home otherwise Patient reported Hypotension (3) Hypokalemia, Resolved (4) CAD: s/p recent CABG x 2 (BRAGA to LAD, SVG to PDA of RCA Per Dr. Pancho Temple [facility] 12/24/2017) (5) Hyperlipidemia (6) Obesity (7) History of Tobacco use You will use the following diet at home:: Cardiac Your food should be the consistency of: Regular Your liquids should be the consistency of: Regular/Thin Discharge Activity: Return to Normal Activity May resume sexual activity in: No Restrictions Weight Bearing Status: Weight bearing as tolerated Call your doctor if you observe: Fever of 101 or Higher, Inability to urinate, Inability to have a bowel movement, Shortness of breath, Dizziness, Chest pain, Uncontrolled pain Instructions: ED Chest Pain Angina Stable, ED Chest Pain NonCardiac, Controlling High Blood Pressure, Low-Salt Choices Additional Instructions: The stress test is negative and your heart squeezed normally. The cardiac care nurse you wore showed no problem with the rhythm of your heart. Additionally, the cardiac enzyme series performed remained normal. Please continue the recent additional blood pressure regimen changes made per Dr. Hall as your blood pressure was elevated during your stress testing. Given regimen changes please have repeat basic metabolic panel with your primary care physician at follow-up. Please maintain your current follow-up with Dr. Hall. Allergies/Adverse Reactions: Allergies Penicillins Allergy (Verified 04/21/18 20:14) Anaphylaxis Medications to take at Discharge aspirin 81 mg tablet,delayed release 81 mg PO QDAY tab 12/16/17 metoprolol tartrate 50 mg tablet 50 mg PO BID tab 01/22/18 atorvastatin 80 mg tablet 80 mg PO QDAY #90 tab 01/23/18 Losartan/Hydrochlorothiazide [Losartan-Hctz 50-12.5 mg Tab] 1 ea PO DAILY #30 tab 04/22/18 The following prescriptions were given: Losartan/Hydrochlorothiazide [Losartan-Hctz 50-12.5 mg Tab] 1 ea PO DAILY #30 tab Primary Care Physician: Tierra Jensen MD [Primary Care Provider] - Please follow up with your Primary Care Physician in: Follow-up within 3-5 days to review admission. Test Results: Test results from this visit will be discussed in further detail at your follow-up appointment, if applicable. Please Follow Up With: Tyler Hall MD When: Please maintain current appointment already in place. Proposed Discharge Date: 04/22/18
--- NOTE | 2018-04-22 14:41 | DCINST_ITS ---
- Discharge Diagnoses Current Active Problems: Current Active and Chronic Problems (Last Reviewed 01/23/18 @ 11:22 by Lakeisha Arzola) (1) Chest Pain w/ underlying CAD, ACS ruled out, Unremarkable stress testing (2) Hypertension, Noted during stress testing at per patient report at home otherwise Patient reported Hypotension (3) Hypokalemia, Resolved (4) CAD: s/p recent CABG x 2 (BRAGA to LAD, SVG to PDA of RCA Per Dr. Pancho Temple [facility] 12/24/2017) (5) Hyperlipidemia (6) Obesity (7) History of Tobacco use You will use the following diet at home:: Cardiac Your food should be the consistency of: Regular Your liquids should be the consistency of: Regular/Thin Discharge Activity: Return to Normal Activity May resume sexual activity in: No Restrictions Weight Bearing Status: Weight bearing as tolerated Call your doctor if you observe: Fever of 101 or Higher, Inability to urinate, Inability to have a bowel movement, Shortness of breath, Dizziness, Chest pain, Uncontrolled pain Instructions: ED Chest Pain Angina Stable, ED Chest Pain NonCardiac, Controlling High Blood Pressure, Low-Salt Choices Additional Instructions: The stress test is negative and your heart squeezed normally. The medical corps officer you wore showed no problem with the rhythm of your heart. Additionally, the cardiac enzyme series performed remained normal. Please continue the recent additional blood pressure regimen changes made per Dr. Hall as your blood pressure was elevated during your stress testing. Given regimen changes please have repeat basic metabolic panel with your primary care physician at follow-up. Please maintain your current follow-up with Dr. Hall. Allergies/Adverse Reactions: Allergies Penicillins Allergy (Verified 04/21/18 20:14) Anaphylaxis Medications to take at Discharge aspirin 81 mg tablet,delayed release 81 mg PO QDAY tab 12/16/17 metoprolol tartrate 50 mg tablet 50 mg PO BID tab 01/22/18 atorvastatin 80 mg tablet 80 mg PO QDAY #90 tab 01/23/18 Losartan/Hydrochlorothiazide [Losartan-Hctz 50-12.5 mg Tab] 1 ea PO DAILY #30 tab 04/22/18 The following prescriptions were given: Losartan/Hydrochlorothiazide [Losartan-Hctz 50-12.5 mg Tab] 1 ea PO DAILY #30 tab Primary Care Physician: Tierra Jensen MD [Primary Care Provider] - Please follow up with your Primary Care Physician in: Follow-up within 3-5 days to review admission. Test Results: Test results from this visit will be discussed in further detail at your follow- up appointment, if applicable. Please Follow Up With: Tyler Hall MD When: Please maintain current appointment already in place. Proposed Discharge Date: 04/22/18
--- NOTE | 2018-04-22 15:25 | PCM.DC.SUM ---
Discharge Date and Diagnosis Date of Admission: 04/21/18 Date of Discharge: 04/22/18 - Primary Discharge Diagnosis Chest pain - musculoskeletal CAD hx CABGx2 HLD Obesity HTN Hypokalemia - Secondary Discharge Diagnosis Chronic Problems (Last Reviewed 01/23/18 @ 11:22 by Lakeisha Arzola) Atherosclerotic heart disease of [place] coronary artery without angina pectoris (Chronic) BRAGA to LAD, SVG to PDA of RCA Per Dr. Pancoh Temple [facility] 12/24/2017 S/P CABG x 2 (Chronic) BRAGA to LAD, SVG to PDA of RCA Per Dr. Pancho Temple [facility] 12/24/2017 Mixed hyperlipidemia (Chronic) Obesity (BMI 30-39.9) (Chronic) Nicotine abuse (Chronic) Hospital Course and Treatment Imaging Results: RAD/Chest 1 View (Portable) IMPRESSION: Normal x-ray examination of the chest. Stress Test: Interpretation Summary The study was technically difficult. Contrast injection was performed. The estimated ejection fraction is 65 %. Normal, adequate, treadmill echocardiogram. Negative for ischemia by EKG and echocardiographic criteria. No anginal symptoms noted. No arrhythmias noted. Appropriate blood pressure response to exercise. Slightly below normal exercise capacity. Final LVEF is 75%. Decreased sensitivity due to poor echo windows and use of Definity enhancing agent. No complications. Consults: Rafael - cardiology Operations: None Procedures: Stress test Summary of Care Provided: Physical exam on day of discharge: See daily progress note. Hospital course: The patient is a 42 year old M with a hx of CAD s/p prior CABG x 2, patient of Dr. Hall, also with HTN, HLD, obesity who presented to the ER with SOB and CP radiating into the neck worse with activity relieved by nitro in the ER. He had negative troponin, negative CXR, negative EKG, lab work with leukocytosis and low K. Cardiology was consulted and he was admitted to the PCU. He was maintained on tele and troponins were cycled. He underwent a stress test the following day. This was negative, although he did have elevated blood pressure during the test. Dr. Hall started him on HCTZ and losartan. Potassium was low on admission which was repleted. LDL at goal : 58. He was discharged home in stable condition. Please follow up with Dr. Hall and with your PCP. This patient was seen by Ovidio Maire PA-C under the supervision of Dr. Mcnair[] Discharge Diet: Low fat/ Low Cholesterol, 2000 mg Sodium Diet Discharge Activity: Return to Normal Activity May resume sexual activity in: No Restrictions Weight Bearing Status: Weight bearing as tolerated Call your doctor if you observe: Fever of 101 or Higher, Inability to urinate, Inability to have a bowel movement, Shortness of breath, Dizziness, Chest pain, Uncontrolled pain Home Medications: Medications to take at Discharge aspirin 81 mg tablet,delayed release 81 mg PO QDAY tab 12/16/17 metoprolol tartrate 50 mg tablet 50 mg PO BID tab 01/22/18 atorvastatin 80 mg tablet 80 mg PO QDAY #90 tab 01/23/18 Losartan/Hydrochlorothiazide [Losartan-Hctz 50-12.5 mg Tab] 1 ea PO DAILY #30 tab 04/22/18 Following Prescrptions Were Given to Patient: Losartan/Hydrochlorothiazide [Losartan-Hctz 50-12.5 mg Tab] 1 ea PO DAILY #30 tab Primary Care Physician: Tierra Jensen MD [Primary Care Provider] - Please follow up with your Primary Care Physician in: Follow-up within 3-5 days to review admission. Please Follow Up With: Tyler Hall MD When: Please maintain current appointment already in place. Patient Instructions: Controlling High Blood Pressure, Low-Salt Choices, ED Chest Pain Angina Stable, ED Chest Pain NonCardiac Disposition: Home Minutes spent on discharge:: 35 Patient Condition:: Stable Medical Necessity - Tobacco Use Smoking Status: Former smoker Tobacco Use: Non-smoker Meaningful Use Info Meaningful Use Diagnoses (Choose all that apply): None applicable
--- NOTE | 2018-04-22 15:41 | DS.PCM_ITS ---
Discharge Date and Diagnosis Date of Admission: 04/21/18 Date of Discharge: 04/22/18 - Primary Discharge Diagnosis Chest pain - musculoskeletal CAD hx CABGx2 HLD Obesity HTN Hypokalemia - Secondary Discharge Diagnosis Chronic Problems (Last Reviewed 01/23/18 @ 11:22 by Lakeisha Arzola) Atherosclerotic heart disease of [place] coronary artery without angina pectoris (Chronic) BRAGA to LAD, SVG to PDA of RCA Per Dr. Pancho Temple [facility] 12/24/2017 S/P CABG x 2 (Chronic) BRAGA to LAD, SVG to PDA of RCA Per Dr. Pancho Temple [facility] 12/24/2017 Mixed hyperlipidemia (Chronic) Obesity (BMI 30-39.9) (Chronic) Nicotine abuse (Chronic) Hospital Course and Treatment Imaging Results: RAD/Chest 1 View (Portable) IMPRESSION: Normal x-ray examination of the chest. Stress Test: Interpretation Summary The study was technically difficult. Contrast injection was performed. The estimated ejection fraction is 65 %. Normal, adequate, treadmill echocardiogram. Negative for ischemia by EKG and echocardiographic criteria. No anginal symptoms noted. No arrhythmias noted. Appropriate blood pressure response to exercise. Slightly below normal exercise capacity. Final LVEF is 75%. Decreased sensitivity due to poor echo windows and use of Definity enhancing agent. No complications. Consults: Rafael - cardiology Operations: None Procedures: Stress test Summary of Care Provided: Physical exam on day of discharge: See daily progress note. Hospital course: The patient is a 42 year old M with a hx of CAD s/p prior CABG x 2, patient of Dr. Hall, also with HTN, HLD, obesity who presented to the ER with SOB and CP radiating into the neck worse with activity relieved by nitro in the ER. He had negative troponin, negative CXR, negative EKG, lab work with leukocytosis and low K. Cardiology was consulted and he was admitted to the PCU. He was maintained on tele and troponins were cycled. He underwent a stress test the following day. This was negative, although he did have elevated blood pressure during the test. Dr. Hall started him on HCTZ and losartan. Potassium was low on admission which was repleted. LDL at goal : 58. He was discharged home in stable condition. Please follow up with Dr. Hall and with your PCP. This patient was seen by Ovidio Marie PA-C under the supervision of Dr. Mcnair[] Discharge Diet: Low fat/ Low Cholesterol, 2000 mg Sodium Diet Discharge Activity: Return to Normal Activity May resume sexual activity in: No Restrictions Weight Bearing Status: Weight bearing as tolerated Call your doctor if you observe: Fever of 101 or Higher, Inability to urinate, Inability to have a bowel movement, Shortness of breath, Dizziness, Chest pain, Uncontrolled pain Home Medications: Medications to take at Discharge aspirin 81 mg tablet,delayed release 81 mg PO QDAY tab 12/16/17 metoprolol tartrate 50 mg tablet 50 mg PO BID tab 01/22/18 atorvastatin 80 mg tablet 80 mg PO QDAY #90 tab 01/23/18 Losartan/Hydrochlorothiazide [Losartan-Hctz 50-12.5 mg Tab] 1 ea PO DAILY #30 tab 04/22/18 Following Prescrptions Were Given to Patient: Losartan/Hydrochlorothiazide [Losartan-Hctz 50-12.5 mg Tab] 1 ea PO DAILY #30 tab Primary Care Physician: Tierra Jensen MD [Primary Care Provider] - Please follow up with your Primary Care Physician in: Follow-up within 3-5 days to review admission. Please Follow Up With: Tyler Hall MD When: Please maintain current appointment already in place. Patient Instructions: Controlling High Blood Pressure, Low-Salt Choices, ED Chest Pain Angina Stable, ED Chest Pain NonCardiac Disposition: Home Minutes spent on discharge:: 35 Patient Condition:: Stable Medical Necessity - Tobacco Use Smoking Status: Former smoker Tobacco Use: Non-smoker Meaningful Use Info Meaningful Use Diagnoses (Choose all that apply): None applicable
== END 2018-04-22 14:40 | disposition home or self-care (01) ==
LOC: ED 20:40 → PCU 22:29
PROVIDERS: Admitting Provider Hospitalist; Emergency Provider Emergency Medicine; Family Provider Internal Medicine; PCP Internal Medicine; Visit Provider Family Medicine
DX: R07.89 Other chest pain (principal); I25.10 Atherosclerotic heart disease of native coronary artery without angina pectoris; I10 Essential (primary) hypertension; E66.9 Obesity, unspecified; Z95.1 Presence of aortocoronary bypass graft; Z87.891 Personal history of nicotine dependence; Z68.35 Body mass index [BMI] 35.0-35.9, adult; Z71.3 Dietary counseling and surveillance; Z79.899 Other long term (current) drug therapy; Z79.82 Long term (current) use of aspirin; E78.2 Mixed hyperlipidemia; E87.6 Hypokalemia; R94.39 Abnormal result of other cardiovascular function study; R06.02 Shortness of breath; R11.0 Nausea; R00.0 Tachycardia, unspecified; D72.829 Elevated white blood cell count, unspecified
CPT/HCPCS: 36415; 71045; 80048; 80061; 83735; 84484; 85025; 85027; 93005; 93017; 93350; 96372; 99218; 99284; 99406; Q9957; A4216; C8928; G0378

== ENCOUNTER 2018-07-26 17:19 | Emergency (ER) | payer MEDICAID, SELFPAY ==
[2018-07-26 17:21] VITALS: BP 153/87; PULSE 132; RESP 24; TEMP 36.8; O2SAT 94; BMI 32.3
--- NOTE | 2018-07-26 17:33 | EKG12_ITS ---
Test Reason : CP Blood Pressure : / mmHG Vent. Rate : 128 BPM Atrial Rate : 128 BPM P-R Int : 118 ms QRS Dur : 080 ms QT Int : 308 ms P-R-T Axes : 047 021 000 degrees QTc Int : 449 ms Sinus tachycardia Possible Left atrial enlargement Borderline ECG Confirmed by DEMETRIO BAILEY, SERGIO ([id number]), editor greeting card CHRISTOPHER LOPEZ ([id number]) on 07/28/2018 11:24:38 AM Referred By: ISHAN/RADHA Confirmed By:SERGIO ATKINSON MD
--- NOTE | 2018-07-26 17:33 | RAD_ITS ---
STUDY: X-RAY CHEST REASON FOR EXAM: Male, 42 years old. Chest pain with shortness of breath. TECHNIQUE: Single frontal view of the chest. COMPARISON: April 21, 2018 FINDINGS: The lungs are mildly hyperexpanded with linear opacities at both bases unchanged. There is no demonstrated pleural abnormality. There is stable cardiomegaly with sternotomy wires and changes of coronary artery bypass grafting. Normal mediastinum and rick. Normal visualized pulmonary arteries. Normal visualized aortic arch and descending thoracic aorta. Normal visualized thoracic spine. Normal visualized ribs, clavicles, and shoulders. There is no demonstrated abnormality of the visualized soft tissue structures of the upper abdomen. RAD/Chest 1 View (Portable) IMPRESSION: Stable appearance of the chest with no new or acute finding. Electronically Signed: Jeromy Paniagua MD at 17:49 EDT , Service support ,
[2018-07-26] MEDS: Aspirin 81 MG TAB.CHEW 324 MG PO (17:38)
--- NOTE | 2018-07-26 17:38 | ED.VISSUMM ---
- ER Visit Summary Date of Service: 07/26/18 Chief Complaint: URI take symptoms last several days. Yesterday started having dull chest aching. History of Present Illness: The patient is a 42 M history of CAD with a recent double bypass at [facility] earlier this year. States he is on aspirin. States he had URI type symptoms last several days. Yesterday started getting dull aching chest discomfort. He has had a recent negative stress test within the last several months. No history of DVT or PE. No leg pain or swelling. No hemoptysis. He describes chest discomfort across his chest. Physical Examination: Well-appearing middle-age male. Vital signs are stable afebrile. His heart rate initially was 132 currently his heart rates in the 1 teens. Pulse ox 94% room air no signs of hypoxia. He is in no distress. H EENT exam unremarkable. Neck nontender. Lungs clear to auscultation bilaterally. Dry cough. Heart regular rhythm rate about 115 120 no murmur. Chest wall nontender. Prior sternotomy incision which is well-healed. Abdomen is soft and nontender. Normal bowel sounds. No peritoneal signs. Moving all 4 extremities. Neurovascularly intact. Calves nontender without edema or cords. Neurologically is awake and alert with no focal motor deficits. Back nontender. Test Results: EKG shows a sinus tachycardia rate of 128 with no signs of [place] or ischemia. Chest x-ray portable one view shows no acute abnormality. Normal cardiac silhouette. Prior sternotomy. No acute changes read both by myself the radiologist. CBC showed an elevated white count of 16.8. H&H is 16 and 43. Electrolytes unremarkable. Normal creatinine and gap. Troponin normal less than 0.015. Emergency Department Course and Treatment: Repeat exam patient is doing well. Pain-free. Given that he had a recent negative stress test. I do not feel he needs admitted. Continue on his current medications. Follow-up with his doll maker. Treatment Plan: Discharge. Disposition: Discharge Impression: Acute chest pain of uncertain etiology History of CAD with double bypass. This note was generated with GoFishation software. It may contain incorrect words, spelling, and punctuation that were not noted in review of the chart prior to signing ED Disposition - Plan for ED Patient: Chief Complaint: Chest Pain Referrals: Tierra Jensen MD [NON-STAFF] -
--- NOTE | 2018-07-26 17:41 | ED.DCSUM_ITS ---
- ER Visit Summary Date of Service: 07/26/18 Chief Complaint: URI take symptoms last several days. Yesterday started having dull chest aching. History of Present Illness: The patient is a 42 M history of CAD with a recent double bypass at [facility] earlier this year. States he is on aspirin. States he had URI type symptoms last several days. Yesterday started getting dull aching chest discomfort. He has had a recent negative stress test within the last several months. No history of DVT or PE. No leg pain or swelling. No hemoptysis. He describes chest discomfort across his chest. Physical Examination: Well-appearing middle-age male. Vital signs are stable afebrile. His heart rate initially was 132 currently his heart rates in the 1 teens. Pulse ox 94% room air no signs of hypoxia. He is in no distress. H EENT exam unremarkable. Neck nontender. Lungs clear to auscultation bilaterally. Dry cough. Heart regular rhythm rate about 115 120 no murmur. Chest wall nontender. Prior sternotomy incision which is well-healed. Abdomen is soft and nontender. Normal bowel sounds. No peritoneal signs. Moving all 4 extremities. Neurovascularly intact. Calves nontender without edema or cords. Neurologically is awake and alert with no focal motor deficits. Back nontender. Test Results: EKG shows a sinus tachycardia rate of 128 with no signs of [place] or ischemia. Chest x-ray portable one view shows no acute abnormality. Normal cardiac silhouette. Prior sternotomy. No acute changes read both by myself the radiologist. CBC showed an elevated white count of 16.8. H&H is 16 and 43. Electrolytes unremarkable. Normal creatinine and gap. Troponin normal less than 0.015. Emergency Department Course and Treatment: Repeat exam patient is doing well. Pain-free. Given that he had a recent negative stress test. I do not feel he needs admitted. Continue on his current medications. Follow-up with his assisted living housekeeper. Treatment Plan: Discharge. Disposition: Discharge Impression: Acute chest pain of uncertain etiology History of CAD with double bypass. This note was generated with KeepGoation software. It may contain incorrect words, spelling, and punctuation that were not noted in review of the chart prior to signing ED Disposition - Plan for ED Patient: Chief Complaint: Chest Pain Referrals: Tierra Jensen MD [NON-STAFF] -
[2018-07-26 17:54] LABS: Absolute Lymphocyte Count 2.69 X10^3/ul (0.83-4.51); Absolute Neutrophil Count 12.1 X10^3/uL (2.0-7.7); Basophil# 0.04 X10^3/uL; Basophil% 0.2 % (0-1); Eosinophil# 0.15 X10^3/uL; Eosinophils% 0.9 % (0-5); Hematocrit 47.3 % (40-54); Hemoglobin 16.2 g/dl (13.0-16.5); Lymphocyte # 2.69 X10^3/ul (4.0); Mean Corp Hgb Conc 34.2 g/gl (32-36); Mean Corpuscular Hgb 30.7 pg (27.0-32.0); Mean Corpuscular Volume 89.6 fL (80-94); Mean Platelet Vol. 11.1 fl (6.2-12.0); Monocyte# 1.83 X10^3/uL; Monocyte% 10.9 % (0-10); Neutrophil # 12.09 X10^3/uL (2.7-7.7); Neutrophil % 71.8 % (47-70); Platelet Count 267 K/mm3 (150-450); RBC Distribution Width CV 13.3 % (11.6-14.6); RBC Distribution Width SD 43.7 fl (35.1-43.9); Red Blood Count 5.28 M/mm3 (4.6-6.2); White Blood Count 16.8 K/mm3 (4.4-11.0)
[2018-07-26 17:55] LABS: Differential Indicated SCAN CRITERIA MET; POSITIVE COUNT NO; POSITIVE DIFFERENTIAL YES; POSITIVE MORPHOLOGY NO
[2018-07-26 18:03] LABS: Anion Gap 9 (5-15); BUN 7 mg/dL (7-18); BUN/Creat Ratio 6.7 RATIO (10-20); Calcium,Total 8.9 mg/dL (8.5-10.1); Chloride 103 mmol/L (98-107); Creatinine, Serum 1.04 mg/dL (0.70-1.30); EST Glomerular Filtration Rate 83 mL/min (>60); Est Glom Filt Rate - Afr Amer 100 mL/min (>60); Estimated Creatinine Clearance 97.54 ml/min; Glucose 131 mg/dL (74-106); Potassium 3.4 mmol/L (3.5-5.1); Sodium Level 136 mmol/L (136-145)
[2018-07-26 18:15] LABS: Platelet Estimate ADEQUATE (ADEQ); Red Cell Morphology NORM C+C NORMAL (NORM C&C)
--- NOTE | 2018-07-26 18:15 | DCINST.ED_ITS ---
ED Disposition - Plan for ED Patient: Disposition: Home or Assisted Living Chief Complaint: Chest Pain Instructions: ED Chest Pain Atypical Unkn Cause Referrals: Tierra Jensen MD [NON-STAFF] - As Needed Tyler Hall MD [STAFF PHYSICIAN] - As Needed Additional Instructions: Continue your current medications. Return if feeling worse. Otherwise follow-up with your contact acid plant operator helper.
[2018-07-26 18:27] VITALS: BP 115/70; PULSE 109; RESP 25; O2SAT 93
== END 2018-07-26 18:28 | disposition home or self-care (01) ==
PROVIDERS: Emergency Provider Emergency Medicine; Family Provider Family Medicine; PCP Family Medicine
DX: R07.9 Chest pain, unspecified (principal); I25.10 Atherosclerotic heart disease of native coronary artery without angina pectoris; Z95.1 Presence of aortocoronary bypass graft; J06.9 Acute upper respiratory infection, unspecified; Z79.82 Long term (current) use of aspirin; Z79.899 Other long term (current) drug therapy; Z72.0 Tobacco use
CPT/HCPCS: 71045; 80048; 84484; 85025; 93005; 99284; A4216